=== PATIENT | male | born 1975 | race Caucasian/White ===

== ENCOUNTER 2020-12-10 19:27 | Inpatient (IN) | payer MEDICAID, SELFPAY ==
[2020-12-10 19:28] VITALS: BP 142/91; PULSE 68; RESP 20; TEMP 36; O2SAT 100; BMI 23.9
--- NOTE | 2020-12-10 19:40 | ED.DCSUM_ITS ---
- ER Visit Summary Date of Service: 12/10/20 Chief Complaint: [Requesting detox from heroin and alcohol] History of Present Illness: The patient is a 44 M [presents to the emergency department stating that he would like to get detox. Patient states that he has been getting Suboxone off the street and today he had 4 mg. Patient last used heroin 4 days ago which she snorted. Patient has used IV in the past. Patient's last alcohol drink was yesterday. Patient normally drinks beer to the point that he blacks out. Patient denies any suicidal or homicidal ideations. Patient denies recent illness. Patient has history of asthma.] Physical Examination: [HEENT-PERRLA, EOMI. Cranial nerves II through XII grossly intact. TMs clear. Mucous membranes moist. No adenopathy. Cardiovascular-regular rate and rhythm without murmur or ectopy Lungs-clear to auscultation, chest wall stable without crepitus or subcu emphysema. Evaluation of the anterior chest wall does reveal a papular lesion just lateral to the sternum on the left pectoralis muscle. Lesion is somewhat excoriated and tender to palpation. Abdomen-normoactive bowel sounds, soft, nontender, no rebound or rigidity, no peritoneal signs. Extremities-intact ?4, normal range of motion, normal pulses, atraumatic] Test Results: [CBC with differential obtained showing a 7.7, hemoglobin 13.7, hematocrit 40, placed 254. Toxicology screen and alcohol test ordered and pending. LFTs ordered and pending. Chemistries ordered and pending.] Emergency Department Course and Treatment: [Line established. Patient was given normal saline. Case was discussed with hospitalist will evaluate patient for admission.] Treatment Plan: [Admit for detox from alcohol and opiates] Disposition: [Admit] Impression: [Alcohol withdrawal Opiate withdrawal Request for detox] This note was generated with [employer] dictation software. It may contain incorrect words, spelling, and punctuation that were not noted in review of the chart prior to signing ED Disposition - Plan for ED Patient: Referrals: NOT,DEFINED [NON-STAFF] -
--- NOTE | 2020-12-10 20:12 | HP.PCM_ITS ---
Problem List (1) Opiate withdrawal Status: Acute (2) Polysubstance abuse Status: Chronic (3) Alcohol abuse Status: Resolved (4) Chest skin lesion Status: Chronic (5) Asthma Status: Chronic Qualifiers: Asthma severity: unspecified severity Asthma persistence: unspecified Asthma complication type: unspecified Qualified Code(s): J45.909 - Unspecified asthma, uncomplicated (6) Tobacco use Status: Chronic (7) Anxiety and depression Status: Chronic (8) Hepatitis C Status: Chronic Qualifiers: Viral hepatitis chronicity: unspecified Hepatic coma status: without hepatic coma Qualified Code(s): B19.20 - Unspecified viral hepatitis C without hepatic coma (9) History of intravenous drug abuse Status: Resolved History of Present Illness Date of Admission: 12/10/20 Chief Complaint: Acute Opiate Withdrawal The patient is a 44 y/o M w/ PMHx: Asthma, Tobacco use, Polysubstance abuse (Occasional rare heroin snorted, primarily abusing suboxone, no IVDA for several years, prior EtOH abuse but decreased drastically to occasionally max 2-3 beers in one setting and notes only occasionally, prior was 12 pack daily), Former IVDA, Chronic Hepatitis C untreated, Anxiety and Depression, Chronic left- midsternal chest lesion never evaluated with associated chronic pain who presents to the [facility] ED on 12/10/20 w/ noted opiate withdrawal onset starting this evening following last dose suboxone SL 4 mg at ~ 3 pm, usually uses 8 mg daily divided with abdominal pain/cramping, nausea without any recent emesis, generalized body aches and pains, rhinorrhea, restlessness as well as fatigue, mild diaphoresis and intermittent yawning. Patient interested in attaining clean status and notes that he has attempted withdrawal treatment 1 time previously but left early in the course secondary to severity of his withdrawal. 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 He had previously been on Suboxone for opiate abuse via a physician in [facility] specifically noting a [place] with recent intentions to return for ongoing treatment however he notes being very frustrated eventually presenting to [facility] ED for withdrawal treatment. Work-up in the ED included T 96.8, heart rate 68, BP 142/91, respiratory rate 20, and a percent on room air, UDS, alcohol, CBC and CMP pending upon evaluation of patient. Past Medical History Past Medical History (Chronic Problems): Chronic Problems Polysubstance abuse (Chronic) Chest skin lesion (Chronic) Asthma (Chronic) Tobacco use (Chronic) Anxiety and depression (Chronic) Hepatitis C (Chronic) Allergies No Known Allergies Allergy (Verified 12/10/20 19:30) Home Medications: Ambulatory Orders Medication Instructions Recorded Albuterol Sulfate [Albuterol 2 puff INHALATION Q4H PRN 12/10/20 Sulfate Hfa] Surgical History: no surgical history Psychiatric History: Anxiety, Depression Lives: With Family - Patient notes he is currently living with his father in a trailer. Smoking Status: Current every day smoker - Patient notes ongoing 1 pack/day cigarette tobacco usage since he was a teenager. Tobacco Use: Cigarettes Alcohol: Heavy - Patient with a history of significant alcohol abuse noting at least 12 pack of beer daily but for nearly 1 year now he notes he has significantly decreased and does not drink on a daily basis but only occasionally and will have a maximum of 3 beers in one setting. Drugs: - - History of ongoing heroin, Suboxone usage, remote history of IV drug abuse. - *Family History Maternal History Items: - - Mother with a history of schizophrenia. Patient denies having any any schizophrenic history himself. Paternal History Items: High Cholesterol, Heart Disease, Hypertension Review of Systems Constitutional: Reports: Anorexia, Malaise, Weakness, Fatigue. Denies: Chills, Fever, Weight Change HEENT: Reports: - - Rhinorrhea, congestion.. Denies: Head Aches, Sinus Congestion, Sinus Drainage Cardiovascular: Reports: Chest Pain - Chronic chest discomfort with chronic midsternal-left chest lesion, progressing, suspicious for cancer.. Denies: Palpitations Respiratory: Denies: Cough, Shortness of breath at rest, Sputum production Gastrointestinal: Reports: Abdominal Pain, Nausea. Denies: Diarrhea, Vomiting Genitourinary: Denies: Dysuria Musculoskeletal: Reports: Back Pain, Joint Pain, Muscle pain. Denies: Joint Tenderness Skin: Reports: Skin Changes - Midsternal-left chest lesion, concerning for cancer.. Denies: Rash, Wounds Neurological: Denies: Numbness, Tingling, Focal weakness Psychiatric: Reports: Anxiety, Depression. Denies: Homicidal Ideations, Suicidal Ideations Hematologic/ Lymphatic: Denies: Easy Bruising, Easy Bleeding VTE Information - Inpt Only VTE Present on Admission: No VTE Mechan Device Prophylaxis: None VTE Pharm Prophylaxis ordered?: No Reason prophylaxis not ordered:: Treatment Not Indicated Patient Problems: Active and Suspected Problems Opiate withdrawal (Acute) Subjective: Patient seated upright in the ED bed, mildly anxious, restless, talkative. Objective: Physical Examination: General: awake, alert, oriented x 3 and cooperative, seated upright in the ED bed, frequently moving, standing up, obvious restlessness, diaphoretic appearance. Skin: normal color, turgor, no icterus, cyanosis except as noted diaphoretic and significant lower midsternal-left lesion, appears more concerning for cancerous lesion, no discharge, almost a fungating mass appearance. HEENT: AT/NC, EOMI, PERRLA, dry MM, no carotid bruits or JVD noted. Lungs: Diminished breath sounds, greater bases, moderate effort, occasional expiratory wheezing, no reveals or rhonchi. Heart: Regular rate and rhythm; no gallop, rub audible, see skin. Abdomen: soft, mild generalized discomfort with palpation, ND, moderately hyperactive BS, no marked HSM. Extremities: no cyanosis, clubbing, or edema. Neurological: patient awake, alert, oriented as noted; cognitive function intact but unclear baseline; pupils equally reactive to light and accomodation; cranial nerves II-XII grossly normal, moving all 4 extremities, no focal deficits, strength moderately global decrease secondary to acute presentation, restless, mildly agitated. Psychiatric: affect appears restless, mildly agitated, no acute evidence of depressive or anxiety feelings. - Physical Exam Vitals/I&O's: Vital Signs Temp Pulse Resp BP Pulse Ox 96.8 F L 68 20 H 142/91 H 100 12/10/20 19:28 12/10/20 19:28 12/10/20 19:28 12/10/20 19:28 12/10/20 19:28 Oxygen Delivery Method Room Air Weight: 176 lb 5.917 oz Body Mass Index (BMI) 23.9 Current Medications Sodium Chloride () 1,000 mls @ 150 mls/hr IV .Q6H40M [facility] Assessment/Plan All Active Problems Opiate withdrawal (Acute) Alcohol abuse (Resolved) History of intravenous drug abuse (Resolved) The patient is a 44 y/o M w/ PMHx: Asthma, Tobacco use, Polysubstance abuse, Former EtOH Abuse, Former IVDA, Chronic Hepatitis C untreated, Anxiety and Depression, Chronic left-midsternal chest lesion never evaluated with associated chronic pain who presents to the [facility] ED on 12/10/20 w/ noted opiate withdrawal onset starting this evening following last dose suboxone SL 4 mg at ~ 3 pm. 1. Acute Opiate Withdrawal: Will admit to [facility], routine labs including CBC, CMP, urine for drug screen obtained in the ED [], will initiate and continue on protocol with tapering course of Subutex, as needed tylenol, ibuprofen, bowel regimen, gabapentin, Bentyl, Vistaril, methocarbamol, clonidine, PRN nightly trazodone for insomnia, IV fluids, IV antiemetics. Once patient clinically improved and completion of taper nearing will plan consultation with case management for transition to next level of rehabilitation care. 2. Polysubstance Abuse, IVDA Hx, History of Hepatitis C, Chronic: Patient currently not candidate for hep C treatment currently as needs to be clean, sober x 6 months, documented attendance NA or AA meetings, counseling and ongoing negative drug screens. Once appropriate GI, ID to initiate. HIV, hepatitis panel to assess for co-infection pending given he has not been tested for a long time. Encouraged PCP establishment and follow-up. 3. Former EtOH Abuse: Patient very strongly confirms that he stopped heavy alcohol intake approximately 1 year prior at which point he had been using a 12 pack of beer daily but notes that he will occasionally have 1-2 maximum 3 beers and that the last time he had any alcohol intake was maybe 3 to 4 days prior but denies ongoing alcohol abuse. Strongly encouraged with his history complete sobriety. 4. Chronic midsternal-left chest lesion, progressing: Do suspect cancer given appearance, ongoing pain per report, notes having been treated remotely with antibiotic therapy but never improved and denies having any further evaluation secondary to his ongoing substance abuse issues. May need to consider surgery evaluation for biopsy inpatient versus close early follow-up with dermatology outpatient. May also need to consider imaging. 5. Chronic asthma: Strongly encouraged tobacco cessation, will encourage head of bed, I-S, as needed albuterol. 6. Tobacco Abuse: Encouraged cessation, inpatient consultation per RT, NR if desired. 7. Anxiety and depression: Patient is not on any medications, likely contributes, encourage close follow-up with 180 with counseling. 8. DVT prophylaxis: Low risk, encourage ambulation. Inpatient E&M: 40518 Init Hosp L3
--- NOTE | 2020-12-10 20:13 | CM.ED ---
SOCIAL WORK Reason for Consult: Detox Met with patient in room. Introduced role and reason for referral. Patient states spoke with [facility] today. Patient reports wishes to detox from opiates. Patient states has been using Suboxone for the last 4 days in preparation for this. Patient states last use of heroin was 4-5 days ago. Patient stating, I just want help. Discussed [facility] and informed [facility] social work specialist will be in to complete assessment. Patient verbalized understanding. Plan: Admit to [facility] Treatment NavigatorTorsten updated on patient's admission. Jonatan Salgado, GEOTHERMAL OPERATIONS MANAGER, CHIEF FUNDRAISING OFFICER
[2020-12-10] MEDS: 0.9% Normal Saline 1,000 ML 150 ML IV (20:18)
[2020-12-10 20:30] LABS: Absolute Lymphocyte Count 3.93 X10^3/uL (0.83-4.51); Basophil# 0.05 X10^3/uL; Basophil% 0.6 % (0-1); Eosinophil# 0.22 X10^3/uL; Eosinophils% 2.8 % (0-5); Hematocrit 40.2 % (40-54); Hemoglobin 13.7 g/dL (13.0-16.5); Lymphocyte # 3.93 X10^3/ul (4.0); Lymphocyte % 50.8 % (19-41); Mean Corp Hgb Conc 34.1 g/dL (32-36); Mean Corpuscular Hgb 31.6 pg (27.0-32.0); Mean Corpuscular Volume 92.8 fL (80-94); Mean Platelet Vol. 9.1 fl (6.2-12.0); Monocyte% 6.5 % (0-10); NRBC Flagged by Analyzer 0 % (0-5); Neutrophil # 3.03 X10^3/uL (2.7-7.7); Neutrophil % 39.2 % (47-70); Platelet Count 254 K/mm3 (150-450); RBC Distribution Width CV 12.7 % (11.6-14.6); RBC Distribution Width SD 43.6 fl (35.1-43.9); Red Blood Count 4.33 M/mm3 (4.6-6.2); White Blood Count 7.7 K/mm3 (4.4-11.0)
[2020-12-10 20:46] LABS: ALB/GLOB Ratio 1.1 RATIO (0.9-2.4); AST(SGOT) 11 U/L (15-37); Alanine Aminotransfer ALT/SGPT 16 U/L (16-61); Albumin, Serum 3.8 g/dL (3.2-5.0); Alkaline Phosphatase 59 U/L (45-117); Anion Gap 4 (5-15); BUN 8 mg/dL (7-18); BUN/Creat Ratio 10.3 RATIO (10-20); Calcium,Total 8.7 mg/dL (8.5-10.1); Chloride 108 mmol/L (98-107); Creatinine, Serum 0.78 mg/dL (0.70-1.30); EST Glomerular Filtration Rate 116 mL/min (>60); Est Glom Filt Rate - Afr Amer 140 mL/min (>60); Estimated Creatinine Clearance 135.41 ml/min; Globulin 3.4 g/dL (2.2-4.2); Glucose 82 mg/dL (74-106); Potassium 3.4 mmol/L (3.5-5.1); Protein, Total 7.2 g/dL (6.4-8.2); Sodium Level 142 mmol/L (136-145)
[2020-12-10 20:49] LABS: Alcohol, Blood (Medical)-Serum < 3.0 mg/dL
[2020-12-10 21:08] VITALS: BP 144/89; PULSE 60; RESP 14; TEMP 36.8; O2SAT 100
[2020-12-10 21:29] LABS: Amphetamine Urine VISTA NEGATIVE (<1000 ng/mL); Barbiturate Urine VISTA POSITIVE (< 200 ng/mL); Benzodiazepine Urine VISTA NEGATIVE (< 200 ng/mL); Cocaine Urine VISTA NEGATIVE (< 300 ng/mL); Ecstacy Urine VISTA NEGATIVE (< 500 ng/mL); Methadone Urine VISTA NEGATIVE (< 300 ng/mL); PCP Urine VISTA NEGATIVE (< 25 ng/mL); THC Urine VISTA NEGATIVE (< 50 ng/mL); Vista UDS pH Range 6
[2020-12-10 21:36] VITALS: BMI 23.2
[2020-12-10 21:40] VITALS: BMI 23.2
[2020-12-10 21:56] LABS: Magnesium 2.3 mg/dL (1.6-2.6); Phosphorus 2.8 mg/dL (2.5-4.9)
[2020-12-10 22:00] VITALS: BP 119/64; PULSE 64; RESP 16; TEMP 36.8; O2SAT 100
[2020-12-10] MEDS: Lactated Ringers 1,000 ML 125 ML IV (22:15)
[2020-12-10 22:24] LABS: HIV - WCH Non-Reactive (Nonreactive)
[2020-12-10] MEDS: Dicyclomine 10 MG Capsule 20 MG PO (22:32)
--- NOTE | 2020-12-10 22:52 | PCS.PANDOC ---
PANDEMIC DOCUMENTATION INITIATED: Date: 12/10/20 Time: 2134
[2020-12-11 04:45] VITALS: BP 118/67; PULSE 67; RESP 16; TEMP 36.6; O2SAT 98
--- NOTE | 2020-12-11 07:54 | PN_ITS ---
Patient Problems: Active and Suspected Problems Opiate withdrawal (Acute) Subjective: Patient seen and examined. He has been managed for acute alcohol withdrawal and acute opiate withdrawal. He has no complaints this morning. He has remained hemodynamically stable. Review of systems otherwise negative. Vitals/I&O's: Vital Signs Temp Pulse Resp BP Pulse Ox 97.8 F 67 16 118/67 98 12/11/20 04:45 12/11/20 04:45 12/11/20 04:45 12/11/20 04:45 12/11/20 04:45 Oxygen Delivery Method Room Air Weight: 171 lb 4.787 oz Body Mass Index (BMI) 23.2 Intake and Output for Last 24 Hours 12/09/20 12/10/20 12/11/20 23:59 23:59 23:59 Intake Total 390 / 390 1300 / 1300 Balance 390 / 390 1300 / 1300 General: Alert, Oriented x3, Cooperative HEENT: Atraumatic, PERRLA, EOMI, Normocephalic Neck: Supple, No JVD, Negative Carotid Bruits Lungs: Clear to auscultation, Normal air movement Cardiovascular: Regular rate, No murmurs Abdomen: Bowel Sounds Present, Soft, Non Tender Extremities: No edema, Capillary Refill Less than 3 Seconds Skin: No rashes, No breakdown, - - lesion on mid sternum, with a fungating appearance, is chronic Musculoskeletal: No Tenderness to Palpation of Joints or Extremities Neurological: Cranial nerves II-XII grossly intact Psych/Mental Status: Normal Affect, Appropriate, Alert and oriented to time, place, person, mood and affect Laboratory Results 12/10/20 20:04: Phosphorus 2.8, Magnesium 2.3 12/10/20 20:05: WBC 7.7, RBC 4.33 L, Hgb 13.7, Hct 40.2, MCV 92.8, MCH 31.6, MCHC 34.1, RDW Std Deviation 43.6, RDW Coeff of [place] 12.7, Plt Count 254, MPV 9.1, Immature Gran % (Auto) 0.100, Neut % (Auto) 39.2 L, Lymph % (Auto) 50.8 H, [place] % (Auto) 6.5, Eos % (Auto) 2.8, Baso % (Auto) 0.6, Absolute Neuts (auto) 3.0, Absolute Lymphs (auto) 3.93, Nucleated RBC % 0 12/10/20 20:05: Sodium 142, Potassium 3.4 L, Chloride 108 H, Carbon Dioxide 30.0, Anion Gap 4 L, BUN 8, Creatinine 0.78, Estim Creat Clear Calc 135.41, Est GFR (MDRD) Af Amer 140, Est GFR (MDRD) Non-Af 116, BUN/Creatinine Ratio 10.3, Glucose 82, Calcium 8.7, Total Bilirubin 0.20, AST 11 L, ALT 16, Alkaline Phosphatase 59, Total Protein 7.2, Albumin 3.8, Globulin 3.4, Albumin/Globulin Ratio 1.1 12/10/20 20:05: Ethyl Alcohol < 3.0 12/10/20 20:05: Hepatitis A IgM Ab Pending, Hepatitis A Ab Total Pending, Hep Bs Antigen Pending, Hep B Core Total Ab Pending, Hep B Core IgM Ab Pending 12/10/20 20:05: HIV 1&2 Antibody Non-Reactive 12/10/20 21:05: Urine Opiates Screen NEGATIVE, Urine Methadone Screen NEGATIVE, Ur Barbiturates Screen POSITIVE H, Ur Phencyclidine Scrn NEGATIVE, Ur Amphetamines Screen NEGATIVE, U Methamphetamin-MDMA NEGATIVE, U Benzodiazepines Scrn NEGATIVE, Urine Cocaine Screen NEGATIVE, U Cannabinoids Screen NEGATIVE, Ur Drug Screen Comment Current Medications Acetaminophen (Acetaminophen 500 Mg Tablet) 500 mg PO Q4H PRN PRN PRN Reason: Temp > 100.4 F Al Hydroxide/Mg Hydroxide (Mag Hydrox/Al Hydrox/Simeth 30 Ml Udc) 30 ml PO Q6H PRN PRN PRN Reason: dyspesia Albuterol Sulfate (Albuterol 2.5 Mg/3 Ml Vial.Neb.) 2.5 mg INHALATION Q2H PRN PRN PRN Reason: Dyspnea, wheezing Bisacodyl (Bisacodyl 10 Mg Suppository) 10 mg RECTAL DAILY PRN PRN Reason: Constipation Buprenorphine HCl (Buprenorphine Hcl 2 Mg Tab.Subl) 0 mg SL Q8H YOLANDA; Taper Stop: 12/13/20 21:26 Clonidine (Clonidine Hcl 0.1 Mg Tablet) 0.1 mg PO Q8H PRN PRN PRN Reason: RESTLESSNESS Dicyclomine HCl (Dicyclomine 10 Mg Capsule) 20 mg PO Q6H PRN PRN PRN Reason: Abdominal Discomfort Last Admin: 12/10/20 22:32 Dose: 20 mg Documented by: Gabapentin (Gabapentin 300 Mg Capsule) 300 mg PO Q8H PRN PRN PRN Reason: moderate to severe anxiety Hydralazine HCl (Hydralazine 20 Mg/Ml Vial) 10 mg IV Q4H PRN PRN PRN Reason: SBP > 160 Hydroxyzine Pamoate (Hydroxyzine Yanci 25 Mg Capsule) 50 mg PO Q6H PRN PRN PRN Reason: mild anxiety Ibuprofen (Ibuprofen 600 Mg Tablet) 600 mg PO Q8H PRN PRN PRN Reason: Pain Score 1-10 Loperamide HCl (Loperamide 2 Mg Capsule) 2 mg PO Q4H PRN PRN PRN Reason: LOOSE STOOLS Methocarbamol (Methocarbamol 750 Mg Tablet) 1,500 mg PO Q6H PRN PRN PRN Reason: MUSCLE SPASM Nicotine (Nicotine 21 Mg Patch) 21 mg TD DAILY YOLANDA Last Admin: 12/10/20 22:16 Dose: Not Given Documented by: Ondansetron HCl (Ondansetron 8 Mg Tablet) 8 mg PO Q8H PRN PRN PRN Reason: NAUSEA Senna (Senna Tablet) 2 tablet PO QHS PRN PRN Reason: Constipation Sodium Chloride (0.9% Saline Lock 10 Ml Syringe) 10 - 40 ml IV UD PRN PRN Reason: SALINE FLUSH Trazodone HCl (Trazodone 100 Mg Tablet) 100 mg PO QHS PRN PRN PRN Reason: INSOMNIA STROKE Vital Signs/Narrative: Vital Signs Temp Pulse Resp BP Pulse Ox 12/11/20 04:45 97.8 F 67 16 118/67 98 Medical Necessity - Tobacco Use Smoking Status: Current every day smoker Tobacco Use: Cigarettes Assessment/Plan All Active Problems Opiate withdrawal (Acute) Alcohol abuse (Resolved) History of intravenous drug abuse (Resolved) #Acute opioid withdrawal * on opiate withdrawal protocol with buprenorphine * monitor CINA score * # Hepatitis C: chronic. counseled he would need to be clean for ~! 6 months in order to qualify for treatment #Chornbic asthma: stable. on breathing treatments with bronchodilators #Anxiety and depression; to follow up on outpatient basis with PCP and [facility] #Chronic mid sternal lesion: Will get chest CT with contrast to delineate the lesion. based on CT findings, will get plastic surgery consult. DVT prophylaxis: low risk, encourage ambulation. PATIENT SIGNED OUT AGAINST MEDICAL ADVICE on 12/11/2020 Inpatient E&M: 23598 Subs Hosp L2
--- NOTE | 2020-12-11 10:39 | ADDICTION ---
This typewriter aligner met with PT in his room to administer ASAM, DUDIT and MSE assessments and to start d/c planning. PT cooperative throughout assessments. PT requesting direct admit into [facility]. This typewriter aligner will send referral to [facility] for this PT. Assessments to be completed during next visit 12/12.
[2020-12-11 10:45] VITALS: BP 123/76; PULSE 55; RESP 16; TEMP 36.6; O2SAT 97
--- NOTE | 2020-12-11 13:12 | NURSING ---
Patient states that he wishes to sign out AMA. Discussed options with patient in regards to trying the CT with no contrast d/t not being able to obtain IV access. He decline and continues to wish to sign out AMA. Papers signed and copy given to patient.
--- NOTE | 2020-12-11 15:28 | DS.PCM_ITS ---
Discharge Date and Diagnosis - Problem List Patient Problems: Active and Suspected Problems Opiate withdrawal (Acute) Date of Admission: 12/10/20 Date of Discharge: 12/11/20 - Primary Discharge Diagnosis Acute Problems: Active Problems Opiate withdrawal (Acute) - Secondary Discharge Diagnosis Chronic Problems: Chronic Problems Polysubstance abuse (Chronic) Chest skin lesion (Chronic) Asthma (Chronic) Tobacco use (Chronic) Anxiety and depression (Chronic) Hepatitis C (Chronic) Hospital Course and Treatment Operations: None Procedures: None Summary of Care Provided: The patient is a 44 year old M with an extensive past medical history as outlined who was admitted through the ED on 12/10/2020 for acute opioid withdrawal. Symptoms have started on the evening of admission. Patient had been on Suboxone chronically for acute opiate withdrawal and states he was trying to wean himself off. He usually uses 8 mg daily divided in separate doses and not use 4 mg a few hours prior to admission. He complained of abdominal cramping and pain, nausea but no vomiting, generalized body aches and pains as well as rhinorrhea and restlessness and fatigue. She was admitted and managed for acute opiate withdrawal. He said he had previously been on Suboxone for opiate abuse through a physician in [facility] and had been planning on going back there for continuation of his treatment but he had become very frustrated with his withdrawal symptoms so he came to the ED. He was admitted and managed for acute opiate withdrawal. He was started on buprenorphine withdrawal protocol. Patient also stated that he had a lesion on his chest which has been there for several months and was tender. He also had erythema around that lesion. He had never had it biopsied. Patient was started on IV vancomycin and plan was to get a CT of the chest to delineate to the lesion further. However IV line could not be accessed for the IV contrast with a CT scan. Plan was therefore to do the CT without contrast. Patient however got frustrated and signed out AGAINST MEDICAL ADVICE Patient was seen and examined prior to discharge. Please refer to progress notes dated 12/11/2020 for physical examination findings. [] Patient Problems: Active and Suspected Problems Opiate withdrawal (Acute) - Physical Exam Vitals/I&O's: Vital Signs Temp Pulse Resp BP Pulse Ox 97.8 F 55 L 16 123/76 H 97 12/11/20 10:45 12/11/20 10:45 12/11/20 10:45 12/11/20 10:45 12/11/20 10:45 Oxygen Delivery Method Room Air Weight: 171 lb 4.787 oz Body Mass Index (BMI) 23.2 Intake and Output for Last 24 Hours 12/09/20 12/10/20 12/11/20 23:59 23:59 23:59 Intake Total 390 / 390 1300 / 1300 Balance 390 / 390 1300 / 1300 Laboratory Results 12/10/20 20:04: Phosphorus 2.8, Magnesium 2.3 12/10/20 20:05: WBC 7.7, RBC 4.33 L, Hgb 13.7, Hct 40.2, MCV 92.8, MCH 31.6, MCHC 34.1, RDW Std Deviation 43.6, RDW Coeff of [place] 12.7, Plt Count 254, MPV 9.1, Immature Gran % (Auto) 0.100, Neut % (Auto) 39.2 L, Lymph % (Auto) 50.8 H, [place] % (Auto) 6.5, Eos % (Auto) 2.8, Baso % (Auto) 0.6, Absolute Neuts (auto) 3. 0, Absolute Lymphs (auto) 3.93, Nucleated RBC % 0 12/10/20 20:05: Sodium 142, Potassium 3.4 L, Chloride 108 H, Carbon Dioxide 30.0, Anion Gap 4 L, BUN 8, Creatinine 0.78, Estim Creat Clear Calc 135.41, Est GFR (MDRD) Af Amer 140, Est GFR (MDRD) Non-Af 116, BUN/Creatinine Ratio 10.3, Glucose 82, Calcium 8.7, Total Bilirubin 0.20, AST 11 L, ALT 16, Alkaline Phosphatase 59, Total Protein 7.2, Albumin 3.8, Globulin 3.4, Albumin/Globulin Ratio 1.1 12/10/20 20:05: Ethyl Alcohol < 3.0 12/10/20 20:05: Hepatitis A IgM Ab Pending, Hepatitis A Ab Total Pending, Hep Bs Antigen Pending, Hep B Core Total Ab Pending, Hep B Core IgM Ab Pending 12/10/20 20:05: HIV 1&2 Antibody Non-Reactive 12/10/20 21:05: Urine Opiates Screen NEGATIVE, Urine Methadone Screen NEGATIVE, Ur Barbiturates Screen POSITIVE H, Ur Phencyclidine Scrn NEGATIVE, Ur Amphetamines Screen NEGATIVE, U Methamphetamin-MDMA NEGATIVE, U Benzodiazepines Scrn NEGATIVE, Urine Cocaine Screen NEGATIVE, U Cannabinoids Screen NEGATIVE, Ur Drug Screen Comment Discharge Diet: No Restrictions Home Medications: Medications to take at Discharge Albuterol Sulfate [Albuterol Sulfate Hfa] 2 puff INHALATION Q4H PRN 12/10/20 Primary Care Physician: NOT,DEFINED [NON-STAFF] - Disposition: Against Medical Advice Minutes spent on discharge:: 35 Patient Condition:: Fair Medical Necessity - Tobacco Use Smoking Status: Current every day smoker Tobacco Use: Cigarettes Meaningful Use Info Meaningful Use Diagnoses (Choose all that apply): None applicable Inpatient E&M: 16112 Disch Hosp
[2020-12-12 05:07] LABS: HEPATITIS B SURFACE AG Negative (Negative); Hepatitis A AB, Total Positive (Negative); Hepatitis A IgM Antibody Negative (Negative); Hepatitis B Core AB IgM Negative (Negative); Hepatitis B Core Ab Total Positive (Negative); Hepatitis C Ab >11.0 s/co ratio (0.0-0.9)
[2020-12-12 14:25] LABS: Hep B Surface Antibodies Reactive (.)
== END 2020-12-11 13:11 | disposition left against medical advice (07) | DRG 770 ==
LOC: ED 20:09 → MS3 20:59
PROVIDERS: Admitting Provider Family Medicine; Emergency Provider Emergency Medicine; Visit Provider Student in an Organized Health Care Education/Training Program
DX: F11.23 Opioid dependence with withdrawal (principal); F10.239 Alcohol dependence with withdrawal, unspecified; J45.909 Unspecified asthma, uncomplicated; Z79.51 Long term (current) use of inhaled steroids; F17.210 Nicotine dependence, cigarettes, uncomplicated; B18.2 Chronic viral hepatitis C; L98.9 Disorder of the skin and subcutaneous tissue, unspecified; F32.9 Major depressive disorder, single episode, unspecified; F41.9 Anxiety disorder, unspecified
CPT/HCPCS: 36415; 80053; 80307; 82077; 83735; 84100; 85025; 86703; 86704; 86705; 86706; 86708; 86709; 86803; 87040; 87340; 99285; 99406; J7030; J7120; A4216

== ENCOUNTER 2021-02-02 19:45 | Emergency (ER) | payer MEDICAID, SELFPAY ==
[2021-02-02 19:45] VITALS: BP 133/93; PULSE 75; RESP 18; TEMP 36.9; O2SAT 99; BMI 23.7
--- NOTE | 2021-02-02 20:07 | EKG12_ITS ---
Test Reason : CP Blood Pressure : / mmHG Vent. Rate : 069 BPM Atrial Rate : 069 BPM P-R Int : 122 ms QRS Dur : 094 ms QT Int : 366 ms P-R-T Axes : 055 067 032 degrees QTc Int : 392 ms Normal sinus rhythm Normal ECG Confirmed by SUBHASH CAISLLAS, DAVID ([id number]), associate editor RAY BEDOYA ([id number]) on 02/04/2021 9:03:44 AM Referred By: TAMRA Confirmed By:DAVID CULLEN MD
[2021-02-02 20:30] VITALS: RESP 18
[2021-02-02 20:30] LABS: Absolute Lymphocyte Count 3.95 X10^3/uL (0.83-4.51); Absolute Neutrophil Count 3.7 X10^3/uL (2.0-7.7); Basophil# 0.05 X10^3/uL; Basophil% 0.6 % (0-1); Eosinophil# 0.31 X10^3/uL; Eosinophils% 3.6 % (0-5); Hematocrit 45.4 % (40-54); Hemoglobin 15.6 g/dL (13.0-16.5); Lymphocyte # 3.95 X10^3/ul (4.0); Lymphocyte % 46.2 % (19-41); Mean Corp Hgb Conc 34.4 g/dL (32-36); Mean Corpuscular Hgb 31.6 pg (27.0-32.0); Mean Corpuscular Volume 91.9 fL (80-94); Mean Platelet Vol. 9.5 fl (6.2-12.0); Monocyte# 0.49 X10^3/uL; Monocyte% 5.7 % (0-10); NRBC Flagged by Analyzer 0 % (0-5); Neutrophil # 3.74 X10^3/uL (2.7-7.7); Neutrophil % 43.8 % (47-70); Platelet Count 254 K/mm3 (150-450); RBC Distribution Width CV 11.9 % (11.6-14.6); RBC Distribution Width SD 40.2 fl (35.1-43.9); Red Blood Count 4.94 M/mm3 (4.6-6.2); White Blood Count 8.6 K/mm3 (4.4-11.0)
--- NOTE | 2021-02-02 20:30 | RAD_ITS ---
HISTORY: chest pain ADDITIONAL HISTORY: None provided. EXAMINATION/TECHNIQUE: XR Chest 1 View AP/PA Number of images including paperwork: 1 COMPARISON: None FINDINGS: LUNGS AND PLEURA: No consolidation, mass or pleural effusion. CARDIAC SILHOUETTE: Unremarkable. MEDIASTINUM AND GINETTE: Unremarkable. UPPER ABDOMEN: Unremarkable. SKELETON AND SOFT TISSUES: No acute skeletal findings. OTHER DEVICES AND HARDWARE: None. RAD/Chest 1 View (Portable) IMPRESSION: No acute cardiopulmonary abnormality. at 2114 Reported and signed by: Karly Rodriguez MD Electronically Signed: Karly Rodriguez MD at 21:14 EDT Tel , Service support ,
[2021-02-02 20:54] LABS: Anion Gap 6 (5-15); BUN 8 mg/dL (7-18); BUN/Creat Ratio 7.9 RATIO (10-20); Chloride 107 mmol/L (98-107); Creatinine, Serum 1.01 mg/dL (0.70-1.30); EST Glomerular Filtration Rate 86 mL/min (>60); Est Glom Filt Rate - Afr Amer 104 mL/min (>60); Estimated Creatinine Clearance 103.51 ml/min; Glucose 109 mg/dL (74-106); Potassium 3.6 mmol/L (3.5-5.1); Sodium Level 140 mmol/L (136-145)
--- NOTE | 2021-02-02 21:42 | ED.DEP ---
ED Disposition - Plan for ED Patient: Instructions: ED Strain Chest Wall Prescriptions: Doxycycline 100 mg PO BID #20 capsule Prescription Printed Referrals: Care Physician,No Primary [Primary Care Provider] - Kelli Pinto MD [NON-STAFF] -
[2021-02-02] MEDS: Doxycycline 100 MG CAPSULE PO (21:46)
--- NOTE | 2021-02-02 22:05 | ED.VISSUMM ---
- ER Visit Summary Date of Service: 02/02/21 Chief Complaint: Chest wall pain History of Present Illness: The patient is a 45 M presenting with chest wall pain. This has been ongoing for the past several months but has been worsened over the past week. He has had constant pain for the past week. He states he has a sore which has been on his chest for the past 8 months. It has intermittently been treated with antibiotics. He states he also was lifting an air conditioner and this worsened his chest wall pain. He denies shortness of breath. Denies fever. Denies other complaints. Physical Examination: Vitals are stable. Patient is afebrile. Alert no acute distress. HEENT exam is unremarkable. Neck is supple. Lungs are clear and equal bilaterally. Left chest wall tenderness with no crepitus. Chest wall skin lesion 2 cm x 1 cm with mild surrounding erythema. No fluctuance Heart is regular rate and rhythm. Abdomen is soft nontender nondistended. Extremities are unremarkable. Skin is warm and dry. Remainder of exam is unremarkable. Emergency Department Course and Treatment: EKG is normal sinus rhythm rate of 69 with no acute ischemic changes. Chest x-ray read by myself and radiology shows no acute cardiopulmonary abnormality. CBC, chemistries unremarkable. Troponin is negative. Patient declined pain medication in the emergency department. He has a remote history of heroin abuse. He declined NSAIDs as well. He is requesting antibiotics. He is given doxycycline and prescription for doxycycline. He is given dermatology for follow-up. He has a scheduled appointment with his PCP this week. Advised return to ED for worsening complaints. Disposition: Discharge home Impression: Chest wall strain, skin lesion chest wall This note was generated with [employer] dictation software. It may contain incorrect words, spelling, and punctuation that were not noted in review of the chart prior to signing ED Disposition - Plan for ED Patient: Disposition: Home or Assisted Living Instructions: ED Strain Chest Wall Prescriptions: Doxycycline 100 mg PO BID #20 capsule Prescription Printed Referrals: Kelli Pinto MD [NON-STAFF] - Care Physician,No Primary [Primary Care Provider] -
== END 2021-02-02 21:55 | disposition home or self-care (01) ==
PROVIDERS: Emergency Provider Emergency Medicine
DX: S29.011A Strain of muscle and tendon of front wall of thorax, initial encounter (principal); L98.9 Disorder of the skin and subcutaneous tissue, unspecified; J45.909 Unspecified asthma, uncomplicated; Z72.0 Tobacco use; Z79.51 Long term (current) use of inhaled steroids; X50.0XXA Overexertion from strenuous movement or load, initial encounter; Y93.89 Activity, other specified; Y92.89 Other specified places as the place of occurrence of the external cause; Y99.8 Other external cause status
CPT/HCPCS: 71045; 80048; 84484; 85025; 93005; 99283; A4216

== ENCOUNTER → 2021-02-20 | Outpatient (CLI) | payer MEDICAID, SELFPAY ==
[2021-02-02 19:45] VITALS: BMI 23.7
== END | disposition home or self-care (01) ==
LOC: LABSPEC 13:14
PROVIDERS: Visit Provider Physician Assistant
DX: L08.9 Local infection of the skin and subcutaneous tissue, unspecified (principal)
CPT/HCPCS: 87070; 87205

== ENCOUNTER 2021-12-30 15:28 | Emergency (ER) | payer MEDICAID, SELFPAY ==
[2021-12-30 15:29] VITALS: BP 140/81; PULSE 73; RESP 16; TEMP 36.1; O2SAT 99; BMI 27.3
--- NOTE | 2021-12-30 16:15 | VDLE_ITS ---
Reason For Study: swelling RIGHT LEFT GSV is normal. GSV is normal. CFV is compressible, spontaneous, phasic, CFV is compressible, spontaneous, phasic, competent and demonstrates normal competent, and demonstrates normal augmentation. augmentation. FV is compressible, spontaneous, phasic, FV is compressible, spontaneous, phasic, competent and demonstrates normal competent and demonstrates normal augmentation. augmentation. POP V is compressible, spontaneous, phasic, POP V is compressible, spontaneous, phasic, competent and demonstrates normal competent and demonstrates normal augmentation. augmentation. T/P Trunk is compressible. T/P Trunk is compressible. PTV is compressible. PTV is compressible. RT PerV is compressible. LT PerV is compressible. Procedure This is a venous duplex using B-mode, color flow and spectral Doppler. Exam performed portable in ED. The exam was diagnostic. A preliminary report was called and/or faxed to Dr. Pink. VL/Venous Duplex US - Gio Extrem Interpretation Summary No evidence for acute deep venous thrombosis bilateral lower extremities with p atent and compressible bilateral great saphenous veins. Ordering Physician: Augusto Pink Performed By: Bebo Cote RVT
--- NOTE | 2021-12-30 16:32 | EDS_ITS ---
HPI History of Present Illness Chief Complaint: Lower Extremity Injury Informant: patient Narrative Narrative: Patient sent in here by PCP after being evaluated today in the office to rule out DVT. Bilateral lower leg ankle swelling for 4 days. States it was purple now improving. Swelling is improving. No chest pains or shortness of breath. No recent travel surgeries or immobilizations. This past summer reported had a sternal infection secondary history of IV drug use. History of hepatitis C. [id number] smoker. Further discussion he has been having pain when he ambulates improves with rest. He brought in the paperwork from his PCP stating go to the ED to rule out DVTs. Prior similar symptoms: No PFSH PFSH Medical History (Updated 12/30/21 @ 16:53 by Rosalinda Mckeon) Asthma Home Medications albuterol sulfate 2 puff INHALATION Q4H PRN 12/10/20 [History Last Taken Unknown] doxycycline monohydrate 100 mg PO BID #20 capsule 02/02/21 [Rx Last Taken Unknown] Allergy/AdvReac Type Severity Reaction Status Date / Time No Known Allergies Allergy Verified 12/30/21 15:29 Social History Smoking Status: Current every day smoker tobacco type: cigarettes ROS ROS ED Constitutional Constitutional ED: Denies chills, fever(s) or sweats Eyes Eyes: Denies change in vision ENT ENT ED: Denies dysphagia or sore throat Cardiovascular Cardiovascular: Denies chest pain, leg edema, palpitations or racing heartbeat Respiratory/Chest Respiratory/Chest: Denies cough, dyspnea or dyspnea on exertion Gastrointestinal Gastrointestinal: Denies abdominal pain, diarrhea, nausea or vomiting Genitourinary Genitourinary ED: Denies dysuria, hematuria or urinary frequency Musculoskeletal Musculoskeletal: Reports other Details: Bilateral lower extremity swelling ; Denies back pain, extremity pain or neck pain Integumentary Denies rash or wounds Neurologic Neurologic: Denies headache(s), paresthesias or weakness EXAM Physical Exam Const Vital Signs: 12/30/21 15:29 Temperature 96.9 F L Temperature Source Temporal Pulse Rate 73 Respiratory Rate 16 Blood Pressure 140/81 H Blood Pressure Mean 100 Pulse Ox 99 Oxygen Delivery Method Room Air Positive well nourished and well developed General Appearance ED: well developed and NAD HEENT Reports moist mucous membranes normocephalic and atraumatic Eyes PERRL, EOMs intact bilaterally and conjunctivae normal General Eye ED: Yes normal appearance of both eyes Neck no lymphadenopathy and supple General: Negative for tenderness Chest Wall Chest: Negative for tenderness Resp normal respiratory effort and normal air movement Effort and Inspection: symmetric chest movement; Negative for respiratory distress Cardio regular rate, regular rhythm and no murmurs Peripheral Pulses: pulses 2+ throughout GI normal to inspection, nondistended, normoactive bowel sounds and non-tender Palpation: Negative for guarding or rebound tenderness present Back/Spine no CVA tenderness and no thoracic nor lumbar tenderness Extremity normal to inspection Extremity Narrative: 1+ lower extremity swelling ankle and feet, strong PT pulses bilaterally symmetric both lower extremities along with symmetric with radial pulses. Normal color, warm to palpation. General Extremety ED: Yes edema; Negative for tenderness General Extremity: edema Neuro oriented x3 and no sensory deficits noted Sensorium / Orientation: awake and alert Skin no rashes or lesions noted and no wounds MDM MDM MDM Narrative Medical decision making narrative: Patient bilateral lower extremity pain and swelling. He has distal pulses on exam easily palpated. From his history I am more concerned for intermittent claudication stating worse with ambulation improved with rest. He has tobacco history. I did obtain DVT studies of both legs which were negative. His PCP sent him in for possible infection however erythema blanches bilaterally, therefore less likely concerns for cellulitis. Due to time of day is unable to obtain PVRs for further evaluation. I am unable to order as an outpatient. I did discuss with his PCP Dr. Sanchez discussed the concerns. This will be ordered as an outpatient by his PCP. He is given follow-up with Dr. Joshi vascular surgery as an outpatient. I discussed tobacco cessation with the patient. Patient is being discharged under pandemic conditions under declared global, national and state disaster activation, with limited medical resources. Patient and community understands this. Results discussed in layman's terms to the merlin ent satisfaction. All questions answered in layman's terms. Patient understands importance of follow-up care as directed. Patient has been instructed to return to the ED immediately if new symptoms, problems, or questions occur. We mutually agree with the plan of disposition. The patient understand that they may call or return with any questions or concerns at any time. Radiography Diagnostic Testing: Clinical Impression(s) from Imaging Studies Venous Doppler Study 12/30/21 16:15 Interpretation Summary No evidence for acute deep venous thrombosis bilateral lower extremities with patent and compressible bilateral great saphenous veins. Ordering Physician: Augusto Pink Performed By: Bebo Cote RVT Discharge Plan Triage Chief Complaint: Lower Extremity Injury ED Provider: Augusto Pink Dx/Rx/DC Orders Clinical Impression: Claudication, intermittent, Peripheral edema Instructions: ED Peripheral Edema, Bilateral, ED Peripheral Artery Disease (PAD) Prescriptions: No Action albuterol sulfate 8.5 GM HFA aerosol inhaler 2 puff INHALATION Q4H PRN (Reason: Asthma) RF: 0 doxycycline monohydrate 100 MG capsule 100 mg PO BID Qty: 20 RF: 0 Primary Care Provider: Josiah Sanchez Referrals: Osvaldo Joshi MD [STAFF PHYSICIAN] - 3-5 Days Josiah Sanchez MD [Primary Care Provider] - 1 Day Activity Restrictions/Additional Instructions: Ultrasound of your lower extremities negative for DVTs. I discussed with your doctor to order peripheral vascular resistance studies as an outpatient and follow-up with vascular Dr. Joshi for evaluation and testing as an outpatient. Your history is concerning for intermittent claudication. You need to stop smoking. Disposition Disposition: Home, Self Care Discharge Date/Time: 12/30/21 17:13
== END 2021-12-30 17:13 | disposition home or self-care (01) ==
PROVIDERS: Emergency Provider Emergency Medicine; PCP Internal Medicine; Visit Provider Emergency Medicine
DX: I73.9 Peripheral vascular disease, unspecified (principal); F17.210 Nicotine dependence, cigarettes, uncomplicated; M79.604 Pain in right leg; M79.605 Pain in left leg; R60.0 Localized edema; J45.909 Unspecified asthma, uncomplicated; Z86.19 Personal history of other infectious and parasitic diseases
CPT/HCPCS: 93970; 99282

== ENCOUNTER 2022-04-20 12:08 | Emergency (ER) | payer MEDICAID, SELFPAY ==
[2022-04-20 12:09] VITALS: BP 133/90; PULSE 71; RESP 18; TEMP 36.4; O2SAT 97; BMI 23.0
--- NOTE | 2022-04-20 12:22 | CM.ED ---
RANGEL Note RANGEL was contacted by Ioana at [facility]. Ioana said that patient is being brought to the ED. Ioana said that [facility]. Ioana said that the outpatient provider is writing up the assessment currently and then it will be faxed to this proposal lead writer. Plan is for inpatient psych hospitalization. RANGEL updated Triage Early Childhood Worker, patient registration supervisor Valerie, and MD. Plan: Inpatient psych hospitalization. [facility] completed the assessment. Mila ANDRE
[2022-04-20 13:11] LABS: Absolute Neutrophil Count 5.6 X10^3/uL (2.0-7.7); Basophil# 0.04 X10^3/uL; Basophil% 0.4 % (0-1); Eosinophil# 0.09 X10^3/uL; Hematocrit 41.3 % (40-54); Hemoglobin 14.6 g/dL (13.0-16.5); Lymphocyte % 31.1 % (19-41); Mean Corp Hgb Conc 35.4 g/dL (32-36); Mean Corpuscular Hgb 31.3 pg (27.0-32.0); Mean Corpuscular Volume 88.4 fL (80-94); Mean Platelet Vol. 9.4 fl (6.2-12.0); Monocyte# 0.47 X10^3/uL; Monocyte% 5.2 % (0-10); NRBC Flagged by Analyzer 0 % (0-5); Neutrophil # 5.58 X10^3/uL (2.7-7.7); Platelet Count 270 K/mm3 (150-450); RBC Distribution Width CV 12.4 % (11.6-14.6); Red Blood Count 4.67 M/mm3 (4.6-6.2)
--- NOTE | 2022-04-20 13:13 | EX.ED.VIS.PS ---
HPI HPI - Psych History of Present Illness Chief Complaint: Suicidal Informant: patient Narrative Narrative: Patient sent in by crisis for medical clearance for placement. He has been hearing voices that are getting worse, telling him to kill himself. He states it is like it was when I was at [facility] [psychiatry], telling me to jump out the window and sliced myself in the pieces. States he is not having suicidal ideation other than these command hallucinations. States he takes medication for anxiety. States he has had some vomiting and diarrhea recently, no abdominal pain or other symptoms. No fevers or chills or coughing. [facility] Medical History (Updated 04/20/22 @ 15:[address] Donn Yepez MD) Alcohol abuse Anxiety and depression Asthma Asthma Hepatitis C History of intravenous drug abuse Polysubstance abuse Home Medications albuterol sulfate 2 puff INHALATION Q4H PRN 12/10/20 [History Last Taken Unknown] Allergy/AdvReac Type Severity Reaction Status Date / Time No Known Allergies Allergy Verified 04/20/22 12:09 Social History Smoking Status: Current every day smoker tobacco type: cigarettes ROS ROS ED Constitutional Constitutional ED: Denies chills or fever(s) Eyes Eyes: Denies change in vision or diplopia ENT ENT ED: Denies rhinorrhea or sore throat Cardiovascular Cardiovascular: Denies chest pain or palpitations Respiratory/Chest Respiratory/Chest: Denies cough or dyspnea Gastrointestinal Gastrointestinal: Reports diarrhea, nausea and vomiting; Denies abdominal pain Genitourinary Genitourinary ED: Denies dysuria or hematuria Musculoskeletal Musculoskeletal: Denies back pain or neck pain Integumentary Denies abscess or rash Neurologic Neurologic: Denies headache(s), paresthesias or weakness Psychiatric Psychiatric: Reports as per HPI, anxiety, hallucinations and suicidal thoughts; Denies suicidal ideation EXAM Physical Exam Const Vital Signs: 04/20/22 12:09 04/20/22 14:08 Temperature 97.6 F L 97.6 F L Temperature Source Temporal Temporal Pulse Rate 71 66 Respiratory Rate 18 14 Blood Pressure 133/90 H 134/78 H Blood Pressure Mean 104 96 Pulse Ox 97 98 Oxygen Delivery Method Room Air Room Air Positive well nourished and well developed General Appearance ED: well developed and NAD HEENT Reports moist mucous membranes normocephalic and atraumatic Eyes PERRL and EOMs intact bilaterally Neck full ROM and supple Resp normal respiratory effort and clear to auscultation bilaterally Cardio regular rate, regular rhythm and no murmurs GI non-tender and non-distended Auscultation: normoactive bowel sounds Palpation: soft Back/Spine no CVA tenderness General Back: other FROM Extremity normal to inspection General Extremety ED: Negative for edema, pulses abnormal or tenderness General Extremity: Negative for edema or pulses abnormal Neuro oriented x3, CN's II-XII intact bilaterally and no sensory deficits noted Sensorium / Orientation: awake and alert Motor Exam: strength 5/5 throughout Psych mental status grossly normal, thought process normal, cooperative, affect normal, speech normal, denies homicidal ideation and denies suicidal ideation Skin no rashes or lesions noted and no wounds MDM MDM MDM Narrative Medical decision making narrative: Labs and toxicology obtained, patient is testing positive for cocaine but no other toxins that we were able to screen for including alcohol, and the rest of his labs and COVID are unremarkable/negative. He is medically cleared. Crisis is deemed him worthy to be transferred to a psychiatric facility and he is excepted, with transfer pending. Lab Data Attestation: I reviewed the patient's lab results. Labs: Laboratory Results - last 24 hr 04/20/22 04/20/22 04/20/22 13:00 13:00 13:00 WBC 9.0 RBC 4.67 Hgb 14.6 Hct 41.3 MCV 88.4 MCH 31.3 MCHC 35.4 RDW Std Deviation 40.0 RDW Coeff of [place] 12.4 Plt Count 270 MPV 9.4 Immature Gran % (Auto) 0.300 Neut % (Auto) 62.0 Lymph % (Auto) 31.1 [place] % (Auto) 5.2 Eos % (Auto) 1.0 Baso % (Auto) 0.4 Absolute Neuts (auto) 5.6 Absolute Lymphs (auto) 2.80 Nucleated RBC % 0 Sodium 142 Potassium 3.6 Chloride 113 H Carbon Dioxide 23.0 Anion Gap 6 BUN 8 Creatinine 0.80 Estim Creat Clear Calc 128.52 Est GFR (MDRD) Af Amer 135 Est GFR (MDRD) Non-Af 112 BUN/Creatinine Ratio 10.0 Glucose 100 Calcium 9.1 Urine Opiates Screen Urine Methadone Screen Ur Barbiturates Screen Ur Phencyclidine Scrn Ur Amphetamines Screen MDMA (Ecstasy) Screen U Benzodiazepines Scrn Urine Cocaine Screen U Cannabinoids Screen Ur Drug Screen Comment Ethyl Alcohol 4.0 04/20/22 13:42 WBC RBC Hgb Hct MCV MCH MCHC RDW Std Deviation RDW Coeff of [place] Plt Count MPV Immature Gran % (Auto) Neut % (Auto) Lymph % (Auto) [place] % (Auto) Eos % (Auto) Baso % (Auto) Absolute Neuts (auto) Absolute Lymphs (auto) Nucleated RBC % Sodium Potassium Chloride Carbon Dioxide Anion Gap BUN Creatinine Estim Creat Clear Calc Est GFR (MDRD) Af Amer Est GFR (MDRD) Non-Af BUN/Creatinine Ratio Glucose Calcium Urine Opiates Screen NEGATIVE Urine Methadone Screen NEGATIVE Ur Barbiturates Screen NEGATIVE Ur Phencyclidine Scrn NEGATIVE Ur Amphetamines Screen NEGATIVE MDMA (Ecstasy) Screen NEGATIVE U Benzodiazepines Scrn NEGATIVE Urine Cocaine Screen POSITIVE H U Cannabinoids Screen NEGATIVE Ur Drug Screen Comment Ethyl Alcohol Discharge Plan Triage Chief Complaint: Suicidal ED Provider: Donn Yepez Dx/Rx/DC Orders Clinical Impression: Acute psychosis, Cocaine abuse Prescriptions: No Action albuterol sulfate 8.5 GM HFA aerosol inhaler 2 puff INHALATION Q4H PRN (Reason: Asthma) RF: 0 Primary Care Provider: Josiah Sanchez Referrals: Josiah Sanchez MD [Primary Care Provider] - Disposition Disposition: Psychiatric Hospital or Unit
[2022-04-20] MEDS: Ondansetron ODT 4 MG Tablet 8 MG PO (13:28)
[2022-04-20 13:31] LABS: Anion Gap 6 (5-15); BUN 8 mg/dL (7-18); Calcium,Total 9.1 mg/dL (8.5-10.1); Chloride 113 mmol/L (98-107); EST Glomerular Filtration Rate 112 mL/min (>60); Est Glom Filt Rate - Afr Amer 135 mL/min (>60); Estimated Creatinine Clearance 128.52 ml/min; Glucose 100 mg/dL (74-106); Potassium 3.6 mmol/L (3.5-5.1); Sodium Level 142 mmol/L (136-145)
[2022-04-20 14:08] VITALS: BP 134/78; PULSE 66; RESP 14; TEMP 36.4; O2SAT 98
[2022-04-20 14:18] LABS: Amphetamine Urine VISTA NEGATIVE (<1000 ng/mL); Barbiturate Urine VISTA NEGATIVE (< 200 ng/mL); Benzodiazepine Urine VISTA NEGATIVE (< 200 ng/mL); Cocaine Urine VISTA POSITIVE (< 300 ng/mL); Ecstacy Urine VISTA NEGATIVE (< 500 ng/mL); Methadone Urine VISTA NEGATIVE (< 300 ng/mL); PCP Urine VISTA NEGATIVE (< 25 ng/mL); THC Urine VISTA NEGATIVE (< 50 ng/mL); Vista UDS pH Range 7
--- NOTE | 2022-04-20 15:36 | CM.ED ---
RANGEL received call from Yesika at [facility]. Accepting MD is Chichi Larios NP. RN to RN is [phone]. Patient going to ITU Unit. RANGEL updated weigh and charge worker and RN, Lior. RANGEL advised RN to call report with ETA. RN requested community planner schedule transport. RANGEL updated patient that he is going to [facility]. RANGEL called Ioana and advised her of accepting information including [facility]. RANGEL faxed pink slip to [facility]. Plan: [facility] Mila ANDRE
[2022-04-20 16:00] VITALS: BP 124/66; PULSE 68; RESP 14; TEMP 37.2; O2SAT 98
== END 2022-04-20 16:49 ==
PROVIDERS: Emergency Provider Emergency Medicine; PCP Internal Medicine; Visit Provider Emergency Medicine
DX: F23 Brief psychotic disorder (principal); F14.10 Cocaine abuse, uncomplicated; F17.210 Nicotine dependence, cigarettes, uncomplicated; J45.909 Unspecified asthma, uncomplicated
CPT/HCPCS: 36415; 80048; 80307; 82077; 85025; 87811; 99285

== ENCOUNTER 2024-01-09 12:25 | Emergency (ER) | payer MEDICAID, SELFPAY ==
[2024-01-09 12:26] VITALS: BP 176/101; PULSE 84; RESP 16; TEMP 36.4; O2SAT 99; BMI 23.6
--- NOTE | 2024-01-09 13:18 | CT_ITS ---
EXAM: CT CERVICAL SPINE WITHOUT INTRAVENOUS CONTRAST CLINICAL INDICATION: Fall TECHNIQUE: Helically acquired images were obtained of the cervical spine without intravenous contrast. 2D reformatted images were reviewed. This CT exam was performed using one or more of the following dose reduction techniques: automated exposure control, adjustment of the mA and/or kV according to patient size, and/or use of iterative reconstruction technique. RADIATION DOSE: CTDIvol = 21.48 mGy, DLP = 486.89 mGy-cm COMPARISON: No relevant prior studies available. FINDINGS: VERTEBRAE: Unremarkable. No fracture. No traumatic subluxation. No discrete lytic or blastic abnormality. Normal alignment. Normal craniocervical junction and cervicothoracic junction. DISCS/SPINAL CANAL/NEURAL FORAMINA: Unremarkable. Disc heights are preserved. No critical stenosis. SOFT TISSUES: Unremarkable. No prevertebral soft tissue swelling. LYMPH NODES: Unremarkable. No cervical adenopathy. LUNG APICES: Unremarkable as visualized. Clear. CT/Spine Cervical without Contras IMPRESSION: No evidence of acute cervical spinal fracture or spondylolisthesis. Electronically Signed: Dilip Haile MD at 14:41 EST ,
--- NOTE | 2024-01-09 13:18 | RAD_ITS ---
EXAM: XR PELVIS, 1 OR 2 VIEWS CLINICAL INDICATION: Fall TECHNIQUE: Frontal view of the pelvis. COMPARISON: Left femur radiographs of this date. FINDINGS: BONES/JOINTS: No displaced fracture. No destructive or sclerotic lesions. Note that overlapping bowel shadows may however obscure fine detail. Sacroiliac joints are unremarkable. No widening of the pubic symphysis. The articular structures are unremarkable. Mild left-sided facet arthritis noted at L5/S1. SOFT TISSUES: Unremarkable. No soft tissue swelling or gas. NOTE: The single image is submitted on a delayed basis. RAD/Pelvis 1 or 2 Views IMPRESSION: No acute fracture or dislocation. Electronically Signed: Marcos Gandara MD at 0:02 EST ,
--- NOTE | 2024-01-09 13:18 | CT_ITS ---
EXAM: CT HEAD WITHOUT INTRAVENOUS CONTRAST CLINICAL INDICATION: Fall TECHNIQUE: Multiple axial images were obtained of the head without intravenous contrast. This CT exam was performed using one or more of the following dose reduction techniques: automated exposure control, adjustment of the mA and/or kV according to patient size, and/or use of iterative reconstruction technique. RADIATION DOSE: CTDIvol = 44.99 mGy, DLP = 812.98 mGy-cm COMPARISON: No relevant prior studies available. FINDINGS: BRAIN AND EXTRA-AXIAL SPACES: Unremarkable. No intra- or extra-axial hemorrhage. No evidence of acute infarct. No intracranial mass or mass effect. There is preservation of the bolaons/white matter interface. Posterior fossa structures are unremarkable. Ventricles are appropriate for age. No hydrocephalus. Basal cisterns are patent. BONES/JOINTS: Unremarkable. No discrete lytic or blastic abnormalities. SINUSES: Unremarkable as visualized. Clear. MASTOID AIR CELLS: Unremarkable. Clear. ORBITS: Visualized globes, extraocular muscles, optic nerves and retrobulbar fat appear unremarkable. CT/Brain/Head without Contrast IMPRESSION: Negative head/brain CT without intravenous contrast. Electronically Signed: Dilip Haile MD at 14:30 EST ,
--- NOTE | 2024-01-09 13:18 | RAD_ITS ---
EXAM: XR LEFT FEMUR, 2 VIEWS CLINICAL INDICATION: Fall TECHNIQUE: Frontal and lateral views of the left femur. COMPARISON: No relevant prior studies available. FINDINGS: BONES/JOINTS: Unremarkable. No acute fracture. No subluxation. Normal alignment. Preservation of the joint space. No sclerotic or destructive changes observed. SOFT TISSUES: Unremarkable. No soft tissue swelling or gas. No radiopaque foreign body. RAD/Femur Min 2 Views IMPRESSION: Negative left femur x-rays. Electronically Signed: Dilip Haile MD at 14:50 EST ,
--- NOTE | 2024-01-09 13:21 | RAD_ITS ---
EXAM: XR CHEST, 1 VIEW CLINICAL INDICATION: Fall TECHNIQUE: Frontal view of the chest. COMPARISON: 02/02/2021 FINDINGS: LUNGS AND PLEURAL SPACES: Unremarkable. No consolidation or edema. No pneumothorax. No effusion. HEART: Unremarkable. Cardiac silhouette not enlarged. MEDIASTINUM: Central airways and mediastinal contour are unremarkable. BONES/JOINTS: Unremarkable. No acute fracture. SOFT TISSUES: Unremarkable. RAD/Chest 1 View (Portable) IMPRESSION: No radiographic evidence of acute cardiopulmonary disease. Electronically Signed: Dilip Haile MD at 14:49 EST ,
--- NOTE | 2024-01-09 13:46 | EDS_ITS ---
HPI <Jessica Russo RN - Last Filed: 01/09/24 15:58> History of Present Illness Chief Complaint: Fall Detail of Chief Complaint: Fall approximately 4 feet Informant: patient Onset/Context/Timing Onset: Today Context: Onset with activity Timing: Continuous Quality: Throbbing Location: [place] of the head Current Severity: 8/10 Maximum Severity: 7/10 Worsened by: Palpation Relieved by: Rest Associated Symptoms Associated Symptoms: Photosensitivity, activity Narrative Narrative: Patient presents to the ED via EMS after sustaining a fall from rafters in his shed. Patient reports the fall was approximately 4 feet. Patient reports possibly landing on his head or his feet. Patient also says he may have passed out . Patient reports thinking there was a bomb in the shed and he climbed up in the rafters. He then called his family to say nikita and asked his father to call 911. This shed is located on his parents property. His parents then came out to attempt to open the shed doors which were wired closed from the inside by the patient. Patient reports he also called 911. arrived on scene and was able to encourage patient to come down from rafters. While attempting to come down from rafters, patient reports the items he used to get up into the rafters had fallen over causing him to then fall. When asked he reports he may have landed on his head or his feet. He reports a headache and left hamstring pain. He reports prior history of migraines and this headache feels similar, but worse. He also reports photosensitivity. Denies numbness or tingling. He was able to ambulate into the ED room. Patient reports history of migraines, asthma, schizophrenia, and anxiety. He states he is currently suicidal in which his plan involves using heroin. Patient denies access to guns or knives. Patient reports audible and visual hallucinations. He reports he has been off his psychiatric meds for approximately 1 year. He states he just got a refill for his medications 3 days prior but has only taken the Zyprexa. He indicates that his primary care physician would not refill his Haldol or Wellbutrin. Patient also states he has been seen by the counseling center 1 year ago. Reports he was going to [facility] for recovery and assistance in filling his psychiatric meds. He has not been seen there for approximately 2 months. Patient reports he does not drive and has to rely on others for a ride. Patient states he lives in his shed on his parents property. He reports they tolerate him living there . He reports current limited access to food as he has been unable to reactivate his food card. He also reports that he has a fear of stepping off the concrete pad under the shed because he is afraid of what might happen . He reports not sleeping at night due to extreme fear of something bad happening to him. He reports he will use meth to keep him awake at night. Patient reports last alcohol use was yesterday in which he had 1 beer. He reports last meth use was 4 to 6 days ago. He reports using opiates either snorting or injecting. Last use was 1 month ago. He also reports he was on Suboxone but has been off of that for 2 months. Prior similar symptoms: No Recent Illness/Hospitalization: No PFSH <Jessica Russo RN - Last Filed: 01/09/24 15:58> [facility] Medical History Alcohol abuse Anxiety and depression Asthma Asthma Hepatitis C History of intravenous drug abuse Polysubstance abuse Schizophrenia Home Medications albuterol sulfate 90 mcg/actuation aerosol inhaler 2 puff inhalation Q4H PRN Asthma 12/10/20 [History Last Taken Unknown] Allergy/AdvReac Type Severity Reaction Status Date / Time No Known Allergies Allergy Verified 01/09/24 12:26 Social History Smoking Status: Current every day smoker tobacco type: cigarettes ROS <Jessica Russo RN - Last Filed: 01/09/24 15:58> ROS ED Constitutional Constitutional ED: Denies chills, fever(s), sweats or weight loss Eyes Eyes: Reports other Details: Photosensitivity ; Denies blurry vision, change in vision or diplopia ENT ENT ED: Denies ear pain, rhinorrhea or sore throat Cardiovascular Cardiovascular: Denies chest pain or palpitations Respiratory/Chest Respiratory/Chest: Denies cough or dyspnea Gastrointestinal Gastrointestinal: Denies abdominal pain, diarrhea, nausea or vomiting Genitourinary Genitourinary ED: Denies dysuria, hematuria or urinary frequency Musculoskeletal Musculoskeletal: Reports myalgias; Denies arthralgias Integumentary Reports Abrasions Neurologic Neurologic: Reports headache(s); Denies paresthesias or weakness Psychiatric Psychiatric: Reports anxiety, suicidal ideation and suicidal thoughts EXAM <Jessica Russo RN - Last Filed: 01/09/24 15:58> Physical Exam Narrative Exam Narrative: Patient anxious, disheveled, and unkempt. Patient wearing multiple layers of wet clothing. Const Vital Signs: 01/09/24 12:26 01/09/24 12:25 Temperature 97.6 F L Temperature Source Temporal Pulse Rate 84 Respiratory Rate 16 Respiratory Effort Normal Respiratory Depth Normal Respiratory Pattern Normal Blood Pressure 176/101 H Blood Pressure Mean 126 Pulse Ox 99 Oxygen Delivery Method Room Air Room Air Positive well nourished and unkempt General Appearance ED: unkempt and NAD HEENT Reports moist mucous membranes trauma and tenderness Eyes PERRL Eyes Narrative: Lateral nystagmus noted. Neck no lymphadenopathy, supple and no JVD General: Negative for tenderness Chest Wall inspection of chest normal and palpation of chest normal Chest Narrative: Prior surgical scar noted in the epigastric region. No redness or drainage noted. Patient I am able to recall type of surgery. Resp normal respiratory effort Effort and Inspection: Negative for pain with movement Auscultation: wheezes expiratory wheezes and throughout; Negative for rales or rhonchi Cardio regular rate, regular rhythm, S1 normal heart sound and S2 normal heart sound GI normal to inspection, nondistended, normoactive bowel sounds and non-tender Auscultation: normoactive bowel sounds Palpation: soft Extremity Extremity Narrative: Tenderness to left hamstring area. General Extremety ED: Yes tenderness; Negative for edema General Extremity: Negative for edema Neuro oriented x3 Sensorium / Orientation: alert Motor Exam: strength 5/5 throughout Psych Appearance: unkempt Mood & Affect: anxious Skin Skin Narrative: Multiple abrasions noted to bilateral hands and wrists. Bilateral hands are reddened. Feet with scattered reddened areas throughout. All sites without drainage. Trauma: abrasion <Dr. Marlyn Cross MD - Last Filed: 01/09/24 16:19> Physical Exam Const Vital Signs: 01/09/24 12:26 01/09/24 12:25 Temperature 97.6 F L Temperature Source Temporal Pulse Rate 84 Respiratory Rate 16 Respiratory Effort Normal Respiratory Depth Normal Respiratory Pattern Normal Blood Pressure 176/101 H Blood Pressure Mean 126 Pulse Ox 99 Oxygen Delivery Method Room Air Room Air MDM <Jessica Russo RN - Last Filed: 01/09/24 15:58> [facility] Narrative Medical decision making narrative: All of patient's but clothing was removed. Labwork obtained to evaluate for leukocytosis, anemia, and electrolyte derangement. Urine tox screen was obtained. CT head and C-spine was obtained to rule out fractures or intracranial hemorrhage.. Chest x-ray, pelvis, and left femur x-rays were ordered to rule out fractures. History & Record Review Discussion w/independent historian: Patient Lab Data Attestation: I reviewed the patient's lab results. Labs: Laboratory Results - last 24 hr 01/09/24 01/09/24 13:25 13:55 WBC 7.6 RBC 4.31 L Hgb 14.0 Hct 40.8 MCV 94.7 H MCH 32.5 H MCHC 34.3 RDW Std Deviation 40.8 RDW Coeff of [place] 11.8 Plt Count 280 MPV 8.7 Immature Gran % (Auto) 0.100 Neut % (Auto) 57.5 Lymph % (Auto) 31.5 [place] % (Auto) 5.1 Eos % (Auto) 5.3 H Baso % (Auto) 0.5 Absolute Neuts (auto) 4.4 Absolute Lymphs (auto) 2.39 Nucleated RBC % 0 Sodium 140 Potassium 3.7 Chloride 110 H Carbon Dioxide 28.0 Anion Gap 2 L BUN 11 Creatinine 0.78 Estim Creat Clear Calc 129.89 Est GFR (MDRD) Af Amer 137 Est GFR (MDRD) Non-Af 114 BUN/Creatinine Ratio 14.1 Glucose 93 Calcium 9.1 Urine Opiates Screen NEGATIVE Urine Methadone Screen NEGATIVE Ur Barbiturates Screen NEGATIVE Ur Phencyclidine Scrn NEGATIVE Ur Amphetamines Screen POSITIVE H MDMA (Ecstasy) Screen NEGATIVE U Benzodiazepines Scrn NEGATIVE Urine Cocaine Screen NEGATIVE U Cannabinoids Screen NEGATIVE Ur Drug Screen Comment Ethyl Alcohol < 3.0 Radiography Diagnostic Testing: Clinical Impression(s) from Imaging Studies Brain CT 01/09/24 13:18 IMPRESSION: Negative head/brain CT without intravenous contrast. Electronically Signed: Dilip Haile MD at 14:30 EST , Cervical Spine CT 01/09/24 13:18 IMPRESSION: No evidence of acute cervical spinal fracture or spondylolisthesis. Electronically Signed: Dilip Haile MD at 14:41 EST , Femur X-Ray 01/09/24 13:18 IMPRESSION: Negative left femur x-rays. Electronically Signed: Dilip Haile MD at 14:50 EST , Chest X-Ray 01/09/24 13:21 IMPRESSION: No radiographic evidence of acute cardiopulmonary disease. Electronically Signed: Dilip Haile MD at 14:49 EST , Differential Diagnosis Differential Diagnosis: Intracranial hemorrhage Differential Diagnosis: Left femur fracture Management Discussion w/another healthcare provider: Other (Dr. Cross, ED provider) Treatment and Re-Evaluation :: Due to the patient admitting to suicidal ideation with a plan, patient was placed in suicide precautions. Lab work and imaging reviewed. CBC shows a normal white count of 7.6, hemoglobin 14, and platelets 280. Chemistries are normal with the exception of a slightly elevated chloride at 110. Urine tox screen is positive for amphetamines. Patient reports he had used meth approximately 4 to [address] is negative for intracranial hemorrhage. CT C-spine negative for fractures. Chest x-ray negative for fractures or acute lung process. Pelvis x-ray negative for fracture. Left femur x-ray negative for fracture. Patient given Ativan for anxiety and restlessness. After all lab work and imaging reviewed, crisis was consulted due to suicidal ideation. It will be sometime before crisis it is able to evaluate patient. Therefore handoff will be provided to oncoming ED provider. Patient seen and evaluated with [facility] student. I personally interviewed and examined the patient. I was involved in all aspects of patient's orders, int erpretation of results, and treatment. Patient presents via EMS after a fall. Patient has a history of paranoid schizophrenia and has been off his medications for quite some time. Reportedly he has been taking meth to get himself up at night. He has had paranoid thoughts with auditory and visual hallucinations. Today he <Dr. Marlyn Cross MD - Last Filed: 01/09/24 16:19> [facility] Lab Data Labs: Laboratory Results - last 24 hr 01/09/24 01/09/24 13:25 13:55 WBC 7.6 RBC 4.31 L Hgb 14.0 Hct 40.8 MCV 94.7 H MCH 32.5 H MCHC 34.3 RDW Std Deviation 40.8 RDW Coeff of [place] 11.8 Plt Count 280 MPV 8.7 Immature Gran % (Auto) 0.100 Neut % (Auto) 57.5 Lymph % (Auto) 31.5 [place] % (Auto) 5.1 Eos % (Auto) 5.3 H Baso % (Auto) 0.5 Absolute Neuts (auto) 4.4 Absolute Lymphs (auto) 2.39 Nucleated RBC % 0 Sodium 140 Potassium 3.7 Chloride 110 H Carbon Dioxide 28.0 Anion Gap 2 L BUN 11 Creatinine 0.78 Estim Creat Clear Calc 129.89 Est GFR (MDRD) Af Amer 137 Est GFR (MDRD) Non-Af 114 BUN/Creatinine Ratio 14.1 Glucose 93 Calcium 9.1 Urine Opiates Screen NEGATIVE Urine Methadone Screen NEGATIVE Ur Barbiturates Screen NEGATIVE Ur Phencyclidine Scrn NEGATIVE Ur Amphetamines Screen POSITIVE H MDMA (Ecstasy) Screen NEGATIVE U Benzodiazepines Scrn NEGATIVE Urine Cocaine Screen NEGATIVE U Cannabinoids Screen NEGATIVE Ur Drug Screen Comment Ethyl Alcohol < 3.0 Radiography Diagnostic Testing: Clinical Impression(s) from Imaging Studies Brain CT 01/09/24 13:18 IMPRESSION: Negative head/brain CT without intravenous contrast. Electronically Signed: Dilip Haile MD at 14:30 EST , Cervical Spine CT 01/09/24 13:18 IMPRESSION: No evidence of acute cervical spinal fracture or spondylolisthesis. Electronically Signed: Dilip Haile MD at 14:41 EST , Femur X-Ray 01/09/24 13:18 IMPRESSION: Negative left femur x-rays. Electronically Signed: Dilip Haile MD at 14:50 EST , Chest X-Ray 01/09/24 13:21 IMPRESSION: No radiographic evidence of acute cardiopulmonary disease. Electronically Signed: Dilip Haile MD at 14:49 EST , Treatment and Re-Evaluation :: Due to the patient admitting to suicidal ideation with a plan, patient was placed in suicide precautions. Lab work and imaging reviewed. CBC shows a normal white count of 7.6, hemoglobin 14, and platelets 280. Chemistries are normal with the exception of a slightly elevated chloride at 110. Urine tox screen is positive for amphetamines. Patient reports he had used meth appr oximately 4 to [address] is negative for intracranial hemorrhage. CT C-spine negative for fractures. Chest x-ray negative for fractures or acute lung process. Pelvis x-ray negative for fracture. Left femur x-ray negative for fracture. Patient given Ativan for anxiety and restlessness. After all lab work and imaging reviewed, crisis was consulted due to suicidal ideation. It will be sometime before crisis it is able to evaluate patient. Therefore handoff will be provided to oncoming ED provider. Patient seen and evaluated with [facility] student. I personally interviewed and examined the patient. I was involved in all aspects of patient's orders, interpretation of results, and treatment. Patient presents via EMS after a fall. Patient has a history of paranoid schizophrenia and has been off his medications for quite some time. Reportedly he has been taking meth to get himself up at night. He has had paranoid thoughts with auditory and visual hallucinations. Today he reportedly was hiding in the rafters of his storage barn and thought that there was a bomb in the barn. He reportedly had called his parents to say goodbye. When asked specifically that suicidal ideation he reported thoughts of suicide with a plan to overdose on heroin. At this time patient is complaining of pain to the vertex of his head from his fall. As they were trying to get him down from the rafters at the storage where he fell and struck his head. He complains of pain to his left hamstring as well. Patient sitting upright in bed no acute distress Anxious and fidgeting. Head neck examination was no external sign of trauma. No scalp hematoma appreciated. No lacerations. No C-spine tenderness on exam. Heart is regular rate and rhythm. Lung sounds are clear. Abdomen is soft with no focal tenderness. Extremity examination feels mild muscular tenderness in the posterior left thigh. Full range of motion of the hip. Lab work for psychiatric clearance is obtained along with imaging studies. CT scan of the head and C-spine revealed no evidence of acute trauma or fracture. Chest x-ray per my interpretation reveals no obvious rib fracture or pneumothorax. Radiology interpretation reviewed and agrees. Pelvis x-ray per my interpretation reveals no fracture. Radiology interpretation reviewed and agrees. Left femur x-rays per my interpretation reveal no fracture. CBC was normal white count at 7.6 with a hemoglobin of 14. Chemistry studies are unremarkable. EtOH is less than 3. Talk screen is positive for amphet amines. Patient is cleared for psychiatric evaluation. Crisis has been contacted and will be in to see the patient. He is given a dose of p.o. Ativan at this time to help with anxiety. Discharge Plan Triage Chief Complaint: Fall ED Provider: Marlyn Cross Dx/Rx/DC Orders Clinical Impression: Muscle strain, Suicidal ideation, Paranoia, Contusion of scalp, Fall Prescriptions: No Action albuterol sulfate 8.5 GM HFA aerosol inhaler 2 puff INHALATION Q4H PRN (Reason: Asthma) Primary Care Provider: Josiah Sanchez Referrals: Josiah Sanchez MD [Primary Care Provider] -
--- OUTSIDE RECORDS SUMMARY | 2024-01-09 13:49 | XMS RPT_ITS | CCD ---
Author Name Unknown Address [address] [place] [address] Organization [facility] Care Team Providers Care Consulting Property Manager Name Role Phone Unavailable Primary Care Provider Ana Laura Turner Primary Care Provider [phone] Unavailable Primary Care Provider UnavailANA LAURA De León Referring Unavailable No Family, Physician Primary Care Unavailable MARLEN GODINEZ Attending Unavailable Josiah Pratt MD Primary Care Provider [phone] Josiah Pratt MD Primary Care Provider [phone] MARTA MCGARRY Attending Unavailable CARLOTA LUX Attending Unavailable Josiah Pratt MD Primary Care Provider [phone] DESTINEE GASTELUM Referring Unavailable JOSIAH PRATT Primary Care Unavailable JOSIAH PRATT Attending Unavailable JOSIAH PRATT Primary Care Unavailable JOSIAH PRATT Primary Care Unavailable DESTINEE GASTELUM Attending Unavailable JOSIAH PRATT Primary Care Unavailable Medications Current Medications Medication Drug Class(es) Dates Sig (Normalized) Sig (Original) albuterol sulfate HFA 108 (90 Base) MCG/ACT inhaler (1 source) take 2 puff(s) by inhalation every six hours as needed for wheezing albuterol sulfate HFA 108 (90 Base) MCG/ACT inhaler Inhale 2 puffs into the lungs every 6 hours as needed for Wheezing 0 Active Budesonide-Formotero l Fumarate (SYMBICORT IN) (2 sources) Budesonide-Formo ter ol Fumarate (SYMBICORT IN) Inhale into the lungs 0 Active Buprenorphine HCl-Naloxone HCl (SUBOXONE SL) (2 sources) Buprenorphine HCl-Naloxone HCl (SUBOXONE SL) Place under the tongue States 4-8mg QD 0 Active citalopram 20 mg oral tablet (11 sources) Serotonin Reuptake Inhibitor Start: 09-18-2021 CeleXA 20 MG Oral Tablet 09/18/2021 Provider: Ana Laura Taho OIL WELL LOGGING ENGINEER Completed/Discontinued Medications Medication Drug Class(es) Dates Sig (Normalized) Sig (Original) acetaminophen 500 mg oral tablet (1 source) Start: 10-21-2023 End: 10-21-2023 acetaminophen 500 mg tab(s) (TYLENOL) [id number] 200 actuat albuterol 0.09 mg/actuat metered dose inhaler (20 sources) beta2-Adrenergic Agonist Start: 11-28-2021 End: 12-29-2023 take 2 puff(s) by inhalation every four hours as needed for wheezing albuterol HFA (PROVENTIL HFA, VENTOLIN HFA) 90 mcg/actuation inhaler Indications: Moderate persistent asthma without complication Inhale 2 Puffs as instructed every 4 hours as needed for wheezing/shortness of breath. 1 Each 5 12/29/2023 Active Problems Active Problems Problem Classification Problem Date Documented Date Episodic/Chronic Administrative/social admission (2 sources) Homeless; Translations: [Homelessness] Onset: 12-29-2023 12-29-2023 Episodic Alcohol-related disorders (2 sources) Alcohol abuse, uncomplicated; Translations: [Alcohol abuse. uncomplicated] Onset: 04-13-2023 Chronic Anxiety disorders (20 sources) Posttraumatic stress disorder; Translations: [Post-traumatic stress disorder, unspecified] Onset: 08-27-2021 Chronic Asthma (20 sources) Asthma; Translations: [Mild persistent asthma, uncomplicated] Onset: 05-30-2021 Chronic E Codes: Fall (1 source) Fall on same level from slipping, tripping and stumbling without subsequent striking against object, initial encounter; Translations: [Fall on same level from slipping, tripping and stumbling without subsequent striking against object, initial encounter] Onset: 03-25-2023 Episodic Mood disorders (20 sources) Depressive disorder; Translations: [Depressive disorder, not elsewhere classified] Onset: 08-27-2021 Chronic Nonspecific chest pain (2 sources) Chest pain; Translations: [Chest pain, unspecified] Onset: 03-24-2023 Episodic Open wounds of head; neck; and trunk (1 source) Laceration of right eyebrow; Translations: [Laceration without foreign body of right eyelid and periocular area, initial encounter] 10-21-2023 Episodic Other connective tissue disease (1 source) Pain in finger of right hand; Translations: [Pain in right finger(s)] 09-29-2023 Episodic Other infections; including parasitic (1 source) History of hepatitis C; Translations: [Personal history of other infectious and parasitic diseases] 09-29-2023 Episodic Other infections; including parasitic (1 source) Personal history of other infectious and parasitic diseases; Translations: [History of hepatitis C] Onset: 12-29-2023 Episodic Other injuries and conditions due to external causes (1 source) H/O: injury; Translations: [Personal history of other (healed) physical injury and trauma] Episodic Other injuries and conditions due to external causes (1 source) Injury of finger of right hand; Translations: [Unspecified injury of right wrist, hand and finger(s), initial encounter] 09-29-2023 Episodic Other injuries and conditions due to external causes (1 source) Injury of head; Translations: [Unspecified injury of head, initial encounter] 10-21-2023 Episodic Other screening for suspected conditions (not mental disorders or infectious disease) (10 sources) Encounter for screening for diabetes mellitus; Translations: [Diabetes Risk Test Score] Onset: 08-27-2021 Episodic Schizophrenia and other psychotic disorders (2 sources) Schizophrenia; Translations: [Schizophrenia, unspecified] Onset: 09-29-2023 09-29-2023 Chronic Sprains and strains (1 source) Sprain of unspecified part of right wrist and hand, initial encounter; Translations: [Sprain of unspecified part of right wrist and hand, initial encounter] Onset: 03-25-2023 Episodic Substance-related disorders (20 sources) Opioid abuse; Translations: [Opioid abuse, uncomplicated] Onset: 05-30-2021 Chronic Past or Other Problems Problem Classification Problem Date Documented Da te Episodic/Chronic Immunizations and screening for infectious disease (10 sources) Vaccination needed; Translations: [Encounter for immunization] Onset: 04-09-2022 Episodic Other connective tissue disease (1 source) Pain in right finger(s); Translations: [Pain in right finger(s)] Onset: 09-29-2023 Episodic Other injuries and conditions due to external causes (1 source) Unspecified injury of right wrist, hand and finger(s), initial encounter; Translations: [Injury of finger of right hand, initial encounter] Onset: 09-29-2023 Episodic Other lower respiratory disease (8 sources) Rib pain; Translations: [Pleurodynia] Onset: 11-28-2021 Episodic Residual codes; unclassified (20 sources) Finding of body mass index; Translations: [Body mass index (observable entity)] Onset: 08-27-2021 Episodic Residual codes; unclassified (3 sources) History of drug abuse; Translations: [Personal history of other specified conditions] Onset: 05-30-2021 11-28-2021 Episodic Results Test Name Value Interpretation Reference Range Facil ity Vital Signs Date Time Vital Sign Value Performing Clinician Faci lity 12-29-2023 08:48-0500 Diastolic blood pressure 84 mm[Hg] Josiah Pratt MD Work Phone: [facility] 12-29-2023 08:48-0500 Heart rate 91 /min Josiah Pratt MD Work Phone: [facility] 12-29-2023 08:48-0500 Systolic blood pressure 136 mm[Hg] Josiah Pratt MD Work Phone: [facility] 12-29-2023 08:39-0500 Body temperature 98.1 [degF] Josiah Pratt MD Work Phone: [facility] 12-29-2023 08:39-0500 Body weight 80.74 kg Josiah Pratt MD Work Phone: [facility] 12-29-2023 08:39-0500 Respiratory rate 18 /min Josiah Pratt MD Work Phone: [facility] 10-21-2023 15:49-0500 Body temperature 97.3 [degF] Jerzy Zuniga MD Work Phone: [facility] 10-21-2023 15:49-0500 Body weight 80.65 kg Jerzy Zuniga MD Work Phone: [facility] 10-21-2023 15:49-0500 Diastolic blood pressure 84 mm[Hg] Jerzy Zuniga MD Work Phone: [facility] 10-21-2023 15:49-0500 Heart rate 101 /min Jerzy Zuniga MD Work Phone: [facility] 10-21-2023 15:49-0500 Respiratory rate 16 /min Jerzy Zuniga MD Work Phone: [facility] 10-21-2023 15:49-0500 SaO2% (BldA) [Mass fraction] 96 % Jerzy Zuniga MD Work Phone: [facility] 10-21-2023 15:49-0500 Systolic blood pressure 144 mm[Hg] Jerzy Zuniga MD Work Phone: [facility] 09-29-2023 18:16-0500 Body height 80 cm Destinee Older TEA BLENDER.SLIP COVER SEWER Work Phone: [facility] 09-29-2023 18:16-0500 Body weight 78.93 kg Destinee Older TEA BLENDER.SLIP COVER SEWER Work Phone: [facility] 09-29-2023 18:16-0500 Diastolic blood pressure 88 mm[Hg] Destinee Older TEA BLENDER.SLIP COVER SEWER Work Phone: [facility] 09-29-2023 18:16-0500 Heart rate 78 /min Destinee Older TEA BLENDER.SLIP COVER SEWER Work Phone: [facility] 09-29-2023 18:16-0500 Respiratory rate 18 /min Destinee Older TEA BLENDER.SLIP COVER SEWER Work Phone: [facility] 09-29-2023 18:16-0500 SaO2% (BldA) [Mass fraction] 96 % Destinee Older TEA BLENDER.SLIP COVER SEWER Work Phone: [facility] 09-29-2023 18:16-0500 Systolic blood pressure 130 mm[Hg] Destinee Older TEA BLENDER.SLIP COVER SEWER Work Phone: [facility] 04-09-2022 16:53-0400 Body temperature 98.4 [degF] Josiah Pratt MD Work Phone: [facility] 04-09-2022 16:53-0400 Body weight 82.56 kg Josiah Pratt MD Work Phone: [facility] 04-09-2022 16:53-0400 Diastolic blood pressure 76 mm[Hg] Josiah Pratt MD Work Phone: [facility] 04-09-2022 16:53-0400 Heart rate 80 /min Josiah Pratt MD Work Phone: [facility] 04-09-2022 16:53-0400 Respiratory rate 18 /min Josiah Pratt MD Work Phone: [facility] 04-09-2022 16:53-0400 Systolic blood pressure 136 mm[Hg] Josiah Pratt MD Work Phone: [facility] 09-18-2021 11:39-0400 Body height 182.88 cm Ana Laura Thao OIL WELL LOGGING ENGINEER Work Phone: [facility] Work Phone: 09-18-2021 11:39-0400 Body mass index (BMI) [Ratio] 23.5 kg/m2 Ana Laura Thao OIL WELL LOGGING ENGINEER Work Phone: [facility] Work Phone: 09-18-2021 11:39-0400 Body surface area Derived from formula 2 m2 Ana Laura Longjorge OIL WELL LOGGING ENGINEER Work Phone: [facility] Work Phone: 09-18-2021 11:39-0400 Body temperature 96.5 [degF] Ana Laura Longjorge OIL WELL LOGGING ENGINEER Work Phone: [facility] Work Phone: 09-18-2021 11:39-0400 Body weight 78.47 kg Ana Laura Thao OIL WELL LOGGING ENGINEER Work Phone: [facility] Work Phone: 09-18-2021 11:39-0400 Diastolic blood pressure 80 mm[Hg] Ana Laura Longoff OIL WELL LOGGING ENGINEER Work Phone: [facility] Work Phone: 09-18-2021 11:39-0400 Heart rate 55 /min Ana Laura Longoff OIL WELL LOGGING ENGINEER Work Phone: [facility] Work Phone: 09-18-2021 11:39-0400 Respiratory rate 18 /min Ana Laura Longoff OIL WELL LOGGING ENGINEER Work Phone: [facility] Work Phone: 09-18-2021 11:39-0400 SaO2% (BldA) [Mass fraction] 99 % Ana Laura Ethanoff OIL WELL LOGGING ENGINEER Work Phone: [facility] Work Phone: 09-18-2021 11:39-0400 Systolic blood pressure 130 mm[Hg] Ana Laura Longoff OIL WELL LOGGING ENGINEER Work Phone: [facility] Work Phone: 09-08-2021 15:26-0400 Body height 182.88 cm Ana Laura Longoff OIL WELL LOGGING ENGINEER Work Phone: [facility] Work Phone: 09-08-2021 15:26-0400 Body mass index (BMI) [Ratio] 24.3 kg/m2 Ana Laura Longoff OIL WELL LOGGING ENGINEER Work Phone: [facility] Work Phone: 09-08-2021 15:26-0400 Body surface area Derived from formula 2.03 m2 Ana Laura Ethanoff OIL WELL LOGGING ENGINEER Work Phone: [facility] Work Phone: 09-08-2021 15:26-0400 Body temperature 98.2 [degF] Ana Laura Boroff OIL WELL LOGGING ENGINEER Work Phone: [facility] Work Phone: 09-08-2021 15:26-0400 Body weight 81.19 kg Ana Laura Longoff OIL WELL LOGGING ENGINEER Work Phone: [facility] Work Phone: 09-08-2021 15:26-0400 Diastolic blood pressure 80 mm[Hg] Ana Laura Longoff OIL WELL LOGGING ENGINEER Work Phone: [facility] Work Phone: 09-08-2021 15:26-0400 Heart rate 60 /min Ana Laura Thao OIL WELL LOGGING ENGINEER Work Phone: [facility] Work Phone: 09-08-2021 15:26-0400 Heart Rate Rhythm 1 1 Ana Laura Thao OIL WELL LOGGING ENGINEER Work Phone: [facility] Work Phone: 09-08-2021 15:26-0400 Respiratory rate 18 /min Ana Laura Thao OIL WELL LOGGING ENGINEER Work Phone: [facility] Work Phone: 09-08-2021 15:26-0400 SaO2% (BldA) [Mass fraction] 99 % Ana Laura Longoff OIL WELL LOGGING ENGINEER Work Phone: [facility] Work Phone: 09-08-2021 15:26-0400 Systolic blood pressure 130 mm[Hg] Ana Laura Longoff OIL WELL LOGGING ENGINEER Work Phone: [facility] Work Phone: 09-01-2021 09:05-0400 Body height 182.88 cm Ana Laura Longoff OIL WELL LOGGING ENGINEER Work Phone: [facility] Work Phone: 09-01-2021 09:05-0400 Body mass index (BMI) [Ratio] 23.9 kg/m2 Ana Laura REEDP Work Phone: [facility] Work Phone: 09-01-2021 09:05-0400 Body surface area Derived from formula 2.02 m2 Ana Laura Thao OIL WELL LOGGING ENGINEER Work Phone: [facility] Work Phone: 09-01-2021 09:05-0400 Body temperature 98.5 [degF] Ana Laura REEDP Work Phone: [facility] Work Phone: 09-01-2021 09:05-0400 Body weight 79.83 kg Ana Laura Thao OIL WELL LOGGING ENGINEER Work Phone: [facility] Work Phone: 09-01-2021 09:05-0400 Diastolic blood pressure 84 mm[Hg] Ana Laura REEDP Work Phone: [facility] Work Phone: 09-01-2021 09:05-0400 Heart rate 73 /min Ana Laura REEDP Work Phone: [facility] Work Phone: 09-01-2021 09:05-0400 Heart Rate Rhythm 1 1 Ana Laura REEDP Work Phone: [facility] Work Phone: 09-01-2021 09:05-0400 Respiratory rate 18 /min Ana Laura REEDP Work Phone: [facility] Work Phone: 09-01-2021 09:05-0400 SaO2% (BldA) [Mass fraction] 99 % Ana Laura Thao OIL WELL LOGGING ENGINEER Work Phone: [facility] Work Phone: 09-01-2021 09:05-0400 Systolic blood pressure 130 mm[Hg] Ana Laura Boroff OIL WELL LOGGING ENGINEER Work Phone: [facility] Work Phone: 08-27-2021 08:26-0400 Body height 182.88 cm Ana Laura Boroff OIL WELL LOGGING ENGINEER Work Phone: [facility] Work Phone: 08-27-2021 08:26-0400 Body mass index (BMI) [Ratio] 23.3 kg/m2 Ana Laura Boroff OIL WELL LOGGING ENGINEER Work Phone: [facility] Work Phone: 08-27-2021 08:26-0400 Body surface area Derived from formula 2 m2 Ana Laura Boroff OIL WELL LOGGING ENGINEER Work Phone: [facility] Work Phone: 08-27-2021 08:26-0400 Body temperature 96.4 [degF] Ana Laura Boroff OIL WELL LOGGING ENGINEER Work Phone: [facility] Work Phone: 08-27-2021 08:26-0400 Body weight 78.02 kg Ana Laura Boroff OIL WELL LOGGING ENGINEER Work Phone: [facility] Work Phone: 08-27-2021 08:26-0400 Diastolic blood pressure 80 mm[Hg] Ana Laura Boroff OIL WELL LOGGING ENGINEER Work Phone: [facility] Work Phone: 08-27-2021 08:26-0400 Heart rate 64 /min Ana Laura Boroff OIL WELL LOGGING ENGINEER Work Phone: [facility] Work Phone: 08-27-2021 08:26-0400 Respiratory rate 18 /min Ana Laura Boroff OIL WELL LOGGING ENGINEER Work Phone: [facility] Work Phone: 08-27-2021 08:26-0400 SaO2% (BldA) [Mass fraction] 99 % Ana Laura Thao OIL WELL LOGGING ENGINEER Work Phone: [facility] Work Phone: 08-27-2021 08:26-0400 Systolic blood pressure 130 mm[Hg] Ana Laura Thao OIL WELL LOGGING ENGINEER Work Phone: [facility] Work Phone: 08-03-2021 17:52-0400 Body height 182.9 cm [employer] Work Phone: [employer] Phone: 08-03-2021 17:52-0400 Body mass index (BMI) [Ratio] 23.06 kg/m2 [employer] Work Phone: [employer] Work Phone: 08-03-2021 17:52-0400 Body temperature 98.8 [degF] [employer] Work Phone: [employer] Phone: 08-03-2021 17:52-0400 Body weight 77.11 kg [employer] Phone: [employer] Phone: 08-03-2021 17:52-0400 Diastolic blood pressure 96 mm[Hg] [employer] Work Phone: [employer] Phone: 08-03-2021 17:52-0400 Heart rate 96 /min [employer] Work Phone: [employer] Phone: 08-03-2021 17:52-0400 Respiratory rate 16 /min [employer] Phone: [employer] Phone: 08-03-2021 17:52-0400 SaO2% (BldA) [Mass fraction] 98 % [employer] Work Phone: [employer] Work Phone: 08-03-2021 17:52-0400 Systolic blood pressure 145 mm[Hg] [employer] Work Phone: [employer] Work Phone: Encounters Encounter Date Encounter Type Care Provider Facility Start: 12-29-2023 End: 12-29-2023 ambulatory JOSIAH PRATT Facility:[facility] Start: 12-29-2023 End: 12-29-2023 Patient encounter procedure Josiah Pratt MD Work Phone: [facility] Procedures Date Procedure Procedure Detail Performing Clinician Start: 09-29-2023 INFLUENZA VACCINE, A GE 6 MO - 64 YR, QUADRIVALENT (AFLURIA, FLULAVAL, FLUZONE) Destinee Older TEA BLENDER.SLIP COVER SEWER Work Phone: Start: 09-29-2023 [employer] COVI D-19 VACCINE (2022- SEASON) AGE 12+ YR Destinee Older TEA BLENDER.SLIP COVER SEWER Work Phone: Start: 09-18-2021 Drug test prsmv read direct optical obs pr date Ana Laura Boroff OIL WELL LOGGING ENGINEER Work Phone: Start: 09-18-2021 Most recent diastoli c blood pressure 80-89 mm hg Ana Laura Boroff OIL WELL LOGGING ENGINEER Work Phone: Start: 09-18-2021 Most recent systolic blood press 130-139mm hg Ana Laura Boroff OIL WELL LOGGING ENGINEER Work Phone: Start: 09-18-2021 Psychotherapy w/merlin ent 30 minutes Jeanne RODRIGUEZ Work Phone: Start: 09-08-2021 Drug test prsmv read direct optical obs pr date Ana Laura Boroff OIL WELL LOGGING ENGINEER Work Phone: Start: 09-08-2021 Most recent diastoli c blood pressure < 80 mm hg Ana Laura Boroff OIL WELL LOGGING ENGINEER Work Phone: Start: 09-08-2021 Most recent systolic blood pressure <130 mm hg Ana Laura Boroff OIL WELL LOGGING ENGINEER Work Phone: Start: 09-08-2021 Psychotherapy w/merlin ent 30 minutes Jeanne Quoc DENTAL TECHNICIAN APPRENTICE Work Phone: Start: 09-01-2021 Drug test prsmv read direct optical obs pr date Ana Laura Boroff OIL WELL LOGGING ENGINEER Work Phone: Start: 09-01-2021 Most recent diastoli c blood pressure < 80 mm hg Ana Laura Boroff OIL WELL LOGGING ENGINEER Work Phone: Start: 09-01-2021 Most recent systolic blood pressure <130 mm hg Ana Laura Boroff OIL WELL LOGGING ENGINEER Work Phone: Start: 09-01-2021 Psychotherapy w/merlin ent 30 minutes Carlene Jenkins DENTAL TECHNICIAN APPRENTICE Work Phone: Start: 08-27-2021 Antibody screen Start: 08-27-2021 Most recent diastoli c blood pressure 80-89 mm hg Ana Laura Boroff OIL WELL LOGGING ENGINEER Work Phone: Start: 08-27-2021 Most recent systolic blood press 130-139mm hg Ana Laura Boroff OIL WELL LOGGING ENGINEER Work Phone: Start: 08-27-2021 Psychotherapy w/merlin ent 30 minutes Carlene Jenkins DENTAL TECHNICIAN APPRENTICE Work Phone: Start: 08-27-2021 Comprehensive metabo lic panel Ana Laura Boroff Work Phone: Start: 08-27-2021 Drug test prsmv read direct optical obs pr date Ana Laura Boroff OIL WELL LOGGING ENGINEER Work Phone: Start: 08-27-2021 T. PALLIDUM AB Ana Laura harrison Work Phone: Start: 08-27-2021 Lipid 1996 panel - S sarah or Plasma Destinee Older TEA BLENDER.SLIP COVER SEWER Work Phone: Start: 12-05-2020 Anion gap [Moles/Vol] K christina Dowling Work Phone: Start: 12-05-2020 Comprehensive metabo lic panel Riya Dowling Work Phone: Start: 12-05-2020 GLOMERULAR FILTRATIO N RATE, ESTIMATED Riyaamira Dowling Work Phone: Start: 12-05-2020 Hepatitis c antibody Santos Rogers Fromberg Work Phone: Plan of Treatment Date Care Activity Detail Author Start: 10-21-2033 Urine microalbumin profile DTaP,Tdap,Td Vaccine (2 - Td or Tdap) [facility] Start: 08-27-2026 Lipid 1996 panel - S sarah or Plasma Lipid Screening [facility] Start: 08-27-2026 Lipid panel Lipid Screening [facility] Start: 08-27-2026 LIPID SCREEN LIPID SCREEN [facility] Start: 01-09-2025 Diabetes Screening Diabetes Screenin g [facility] Start: 12-29-2024 Annual PCP Team Panel Gluer ellie Disease Visit Annual PCP Team Chronic Disease Visit [facility] Start: 09-29-2024 Annual PCP Team Panel Gluer ellie Disease Visit Annual PCP Team Chronic Disease Visit [facility] Start: 09-29-2023 End: 12-29-2023 CBC W Auto Differential panel - Blood CBC + DIFF Lab Routine History of hepatitis C Expected: 09/29/2023, Expires: 12/29/2023 [facility] Work Phone: Immunizations Immunization Date Immunization Notes Care Provider Fa cili 10-21-2023 tetanus toxoid, reduced diphtheria toxoid, and acellular pertussis vaccine, adsorbed Jerzy Zuniga MD Work Phone: [facility] 09-29-2023 COVID-19 vaccine, ag e 12+ yr, season ([facility] [place]) Destinee Older TEA BLENDER.SLIP COVER SEWER Work Phone: [facility] 09-29-2023 influenza, injectabl e, quadrivalent, contains preservative Destinee Older TEA BLENDER.SLIP COVER SEWER Work Phone: [facility] 08-22-2022 influenza, injectabl e, quadrivalent, preservative free Josiah Pratt MD Work Phone: [facility] Work Phone: 04-09-2022 pneumococcal Conjugate, unspecified formulation Josiah Pratt MD Work Phone: [facility] Work Phone: 04-09-2022 pneumococcal (PCV20) vaccine, 20 valent (PREVNAR 20) Josiah Pratt MD Work Phone: [facility] Work Phone: 11-28-2021 COVID-19 vaccine, ag e 12+ yr ([employer] [facility]) Josiah Pratt MD Work Phone: [facility] Work Phone: 09-08-2021 hepatitis A vaccine, pediatric/adolescent dosage, 2 dose schedule; Translations: [Havrix] Ana Laura Thao [facility] Work Phone: [facility] Work Phone: 09-08-2021 hepatitis B vaccine, unspecified formulation; Translations: [energix] Ana Larua Thao [facility] Work Phone: [facility] Work Phone: Payers Date Payer Category Payer Medicaid [place] [employer] [place] [employer] [id number] 2021-[facility] [phone] [address] [place] [address] Medicaid [id number] 2021 Medicaid [id number] 2021 Private Health Insurance [id number] 2020 Unknown [id number] 1977 Unknown [id number] 1977 Unknown [id number] 1977 Unknown [id number] 1977 Unknown [id number] Social History Date Type Detail Facility Start: 12-05-2020 End: 09-29-2023 Tobacco smoking status NHIS Current every day smoker [facility] Work Phone: History of tobacco use Cigarette Smoker [place], [place] Start: 12-05-2020 End: 06-29-2023 Cigarettes smoked current (pack per day) - Reported [facility] Work Phone: Start: 12-05-2020 End: 09-29-2023 Tobacco use and exposure Never used [employer] Start: 12-05-2020 End: 12-29-2023 Alcohol intake Ex-drinker (finding) [id number] Start: 1975 Sex Assigned At Not on file [facility] [id number] Start: 03-30-2022 End: 07-13-2022 Exposure to SARS-CoV-2 (event) Not sure [facility] Work Phone: Assertion Problem situatio n relating to social and personal history (finding) [facility] Work Phone: Assertion Stress (finding) [facility] Work Phone: Assertion Misuse of prescr iption only drugs (finding) [facility] Work Phone: Assertion Opiate misuse (finding) [facility] Work Phone: Assertion Single person (finding) [facility] Work Phone: Assertion [facility] Work Phone: Assertion Smoker (finding) [facility] Work Phone: Assertion Moderate cigaret te smoker (10-19 cigs/day) (finding) [facility] Work Phone: Assertion Exposure to poll ution (event) [facility] Work Phone: Assertion Gender identity finding (finding) [facility] Work Phone: Assertion Heavy cigarette smoker (20-39 cigs/day) (finding) [facility] Work Phone: Assertion Finding of sexua l orientation (finding) [facility] Work Phone: Tobacco smoking status Unknown if ever sm oked [facility] Work Phone: Assertion Full-time employ ment (finding) [facility] Work Phone: Start: 11-28-2021 History SDOH Alcohol Frequency 1 [facility] Start: 11-28-2021 History SDOH Alcohol Comment recovering [facility] Start: 11-28-2021 End: 06-29-2023 Alcohol Use Disorder Identification Test - Consumption [AUDIT-C] [facility] Work Phone: How often to you hav e a drink containing alcohol? Never [facility] [facility] Work Phone: NEGATED: Highlighted row Assertion No conviction for driving while intoxicated [facility] Work Phone: NEGATED: Highlighted row Assertion Criminal behavior (finding) [facility] Work Phone: NEGATED: Highlighted row Assertion Legal problem (finding) [facility] Work Phone: NEGATED: Highlighted row Assertion Current drinker of alcohol (finding) [facility] Work Phone: NEGATED: Highlighted row Assertion Finding relating to drug misuse behavior (finding) [facility] Work Phone: Mental Status Date Assessment Result Facility Cognitive function Oriented to t moises, place, and person Oriented to person, time and place (finding) [facility] Work Phone: Clinical Notes 05-30-2021 to 12-29-2023 Patient InstructionsJosiah Pratt MD - 12/29/2023 8:59 AM Jerzy Rosales MD - 10/21/2023 3:54 PM Destinee Burkett, TEA BLENDER.SLIP COVER SEWER - 09/29/2023 6:18 PM EST Note Date & Type Note Facility 12-29-2023 Note HNO ID: [id number] Author: JOSIAH PRATT MD Service: ? Author Type: Physician Type: Progress Notes Filed: 12/29/2023 09:44 Note Text: This note was created using vivioriter. Subjective Carlota Putnam is a 48 year old male here for erratic follow up. He had no transportation so he missed his treatment for opioid dependence. He was out of his mental health medications. He had an intake at [facility] next week for services. He had good results from Zyprexa in the past and requested a short term prescription. He mainly needed refills of his asthma medications. Review of Systems Constitutional: Negative for chills, fever and unexpected weight change. HENT: Negative. Respiratory: Positive for cough and wheezing. Negative for shortness of breath. Cardiovascular: Negative. Gastrointestinal: Negative. ACTIVE PROBLEM LIST Asthma Hepatitis C Antibody Test Positive Tobacco Use Disorder History of Illicit Drug Use Depressive Disorder Mixed Anxiety Depressive Disorder Rib Pain On Left Side Heroin Addiction (Hcc) Social History Tobacco Use Smoking status: Every Day Packs/day: 1.00 Years: 20.00 Additional pack years: 0.00 Total pack years: 20.00 Types: Cigarettes Smokeless tobacco: Never Vaping Use Vaping Use: Never used Substance Use Topics Alcohol use: Not Currently Comment: recovering Drug use: Not Currently Frequency: 2.0 times per week Types: Opiates, IV, Heroin, Cocaine, Narcotics Comment: off and on Current Outpatient Medications Medication Sig OLANZapine (ZYPREXA) 5 mg tablet Take 1 tablet by mouth daily at bedtime. montelukast (SINGULAIR) 10 mg tablet Take 1 tablet by mouth daily at bedtime. albuterol HFA (PROVENTIL HFA, VENTOLIN HFA) 90 mcg/actuation inhaler Inhale 2 Puffs as instructed every 4 hours as needed for wheezing/shortness of breath. budesonide-formoterol (SYMBICORT) 160-4.5 mcg/actuation inhaler Inhale 2 Puffs as instructed two times a day. No current facility-administered medications for this visit. Objective BP 136/84 (BP Site: Left Arm, BP Position: Sitting, BP Cuff Size: Large Adult) Pulse 91 Temp 36.7 ?C (98.1 ?F) (Temporal) Resp 18 Wt 80.7 kg (178 lb) BMI 126.16 kg/m? Physical Exam Constitutional: General: He is not in acute distress. Appearance: He is not ill-appearing. HENT: Head: Normocephalic. Cardiovascular: Rate and Rhythm: Normal rate and regular rhythm. Heart sounds: No murmur heard. No gallop. Pulmonary: Effort: No respiratory distress. Breath sounds: Wheezing present. No rales. Neurological: General: No focal deficit present. Mental Status: He is alert. Psychiatric: Mood and Affect: Mood normal. Behavior: Behavior normal. Thought Content: Thought content normal. Comments: Unkempt. Assessment and Plan 1. Mixed anxiety depressive disorder - ICD9: 300.4, ICD10: F41.8 (primary diagnosis) - OLANZAPINE 5 MG TABLET. We agreed this is one time prescription, and this will be continued by his new mental health provider. 2. Depressive disorder - ICD9: 311, ICD10: F32.A - OLANZAPINE 5 MG TABLET 3. Moderate persistent asthma without complication - ICD9: 493.90, ICD10: J45.40 - MONTELUKAST 10 MG TABLET - ALBUTEROL SULFATE HFA 90 MCG/ACTUATION AEROSOL INHALER - BUDESONIDE-FORMOTEROL HFA 160 MCG-4.5 MCG/ACTUATION AEROSOL INHALER 4. Screening for colon cancer - ICD9: V76.51, ICD10: Z12.11 - FECAL OCCULT BLOOD TEST 5. Homelessness - ICD9: V60.0, ICD10: Z59.00 - He has intake at [facility]. I expect he will be hooked up with support services. He will call here if more assistance is needed. Josiah Pratt MD [facility] 12-29-2023 Instructions Josiah Pratt MD - 12/29/2023 9:11 AM EST DO LABS TODAY. documented in this encounter [facility] 12-29-2023 History of Presen t illness Narrative This note was created using Yunait. Subjective Carlota Putnam is a 48 year old male here for erratic follow up. He had no transportation so he missed his treatment for opioid dependence. He was out of his mental health medications. He had an intake at [facility] next week for services. He had good results from Zyprexa in the past and requested a short term prescription. He mainly needed refills of his asthma medications. Review of Systems Constitutional: Negative for chills, fever and unexpected weight change. HENT: Negative. Respiratory: Positive for cough and wheezing. Negative for shortness of breath. Cardiovascular: Negative. Gastrointestinal: Negative. ACTIVE PROBLEM LIST Asthma Hepatitis C Antibody Test Positive Tobacco Use Disorder History of Illicit Drug Use Depressive Disorder Mixed Anxiety Depressive Disorder Rib Pain On Left Side Heroin Addiction (Hcc) Social History Tobacco Use Smoking status: Every Day Packs/day: 1.00 Years: 20.00 Additional pack years: 0.00 Total pack years: 20.00 Types: Cigarettes Smokeless tobacco: Never Vaping Use Vaping Use: Never used Substance Use Topics Alcohol use: Not Currently Comment: recovering Drug use: Not Currently Frequency: 2.0 times per week Types: Opiates, IV, Heroin, Cocaine, Narcotics Comment: off and on Current Outpatient Medications Medication Sig OLANZapine (ZYPREXA) 5 mg tablet Take 1 tablet by mouth daily at bedtime. montelukast (SINGULAIR) 10 mg tablet Take 1 tablet by mouth daily at bedtime. albuterol HFA (PROVENTIL HFA, VENTOLIN HFA) 90 mcg/actuation inhaler Inhale 2 Puffs as instructed every 4 hours as needed for wheezing/shortness of breath. budesonide-formoterol (SYMBICORT) 160-4.5 mcg/actuation inhaler Inhale 2 Puffs as instructed two times a day. No current facility-administered medications for this visit. Objective BP 136/84 (BP Site: Left Arm, BP Position: Sitting, BP Cuff Size: Large Adult) Pulse 91 Temp 36.7 C (98.1 F) (Temporal) Resp 18 Wt 80.7 kg (178 lb) BMI 126.16 kg/m Physical Exam Constitutional: General: He is not in acute distress. Appearance: He is not ill-appearing. HENT: Head: Normocephalic. Cardiovascular: Rate and Rhythm: Normal rate and regular rhythm. Heart sounds: No murmur heard. No gallop. Pulmonary: Effort: No respiratory distress. Breath sounds: Wheezing present. No rales. Neurological: General: No focal deficit present. Mental Status: He is alert. Psychiatric: Mood and Affect: Mood normal. Behavior: Behavior normal. Thought Content: Thought content normal. Comments: Unkempt. Assessment and Plan 1. Mixed anxiety depressive disorder - ICD9: 300.4, ICD10: F41.8 (primary diagnosis) - OLANZAPINE 5 MG TABLET. We agreed this is one time prescription, and this will be continued by his new mental health provider. 2. Depressive disorder - ICD9: 311, ICD10: F32.A - OLANZAPINE 5 MG TABLET 3. Moderate persistent asthma without complication - ICD9: 493.90, ICD10: J45.40 - MONTELUKAST 10 MG TABLET - ALBUTEROL SULFATE HFA 90 MCG/ACTUATION AEROSOL INHALER - BUDESONIDE-FORMOTEROL HFA 160 MCG-4.5 MCG/ACTUATION AEROSOL INHALER 4. Screening for colon cancer - ICD9: V76.51, ICD10: Z12.11 - FECAL OCCULT BLOOD TEST 5. Homelessness - ICD9: V60.0, ICD10: Z59.00 - He has intake at [facility]. I expect he will be hooked up with support services. He will call here if more assistance is needed. Josiah Pratt MD documented in this encounter [facility] 10-21-2023 Note HNO ID: [id number] Author: Jerzy Zuniga MD Service: ? Author Type: Physician Type: Progress Notes Filed: 10/21/2023 5:24 PM Note Text: Patient presents with: cut on eyebrow: Hit with a shovel 1/2 hour ago HPI: Hit by the right eyebrow this afternoon with a shovel that bounced back at his face while helping someone. Denies headache, dizziness, vision change, nausea, weakness, or numbness. Last tetanus vaccine was over 10 years ago. PAST MEDICAL HISTORY Diagnosis Date Asthma Depressive disorder 08/27/2021 Hepatitis C antibody test positive 04/09/2022 Hepatitis C virus infection 11/28/2021 History of illicit drug use 05/30/2021 Immunity to hepatitis B virus demonstrated by serologic test 01/09/2022 Mixed anxiety depressive disorder 08/27/2021 Osteomyelitis (HCC) 05/30/2021 left rib Rib pain on left side 11/28/2021 Tobacco use disorder 05/30/2021 Uncomplicated opioid dependence (HCC) 02/05/2021 MEDICATIONS: benztropine (COGENTIN) 1 mg tablet Take 1 mg by mouth once daily. buPROPion XL (WELLBUTRIN XL) 300 mg 24 hr tablet Take 1 tablet by mouth every afternoon. buPROPion XL (WELLBUTRIN XL) 150 mg 24 hr tablet Take 150 mg by mouth once daily. haloperidol (HALDOL) 5 mg tablet Take 5 mg by mouth four times daily. montelukast (SINGULAIR) 10 mg tablet Take 1 tablet by mouth daily at bedtime. albuterol HFA (PROVENTIL HFA, VENTOLIN HFA) 90 mcg/actuation inhaler Inhale 2 Puffs as instructed every 4 hours as needed for wheezing/shortness of breath. budesonide-formoterol (SYMBICORT) 160-4.5 mcg/actuation inhaler Inhale 2 Puffs as instructed two times a day. naproxen (NAPROSYN) 500 mg tablet Take 1 tablet by mouth three times a day as needed (for pain/inflammation). Take with food. ALLERGIES: ALLERGIES No Known Allergies VITALS: BP 144/84 Pulse 101 Temp 36.3 ?C (97.3 ?F) (Tympanic) Resp 16 Wt 80.6 kg (177 lb 12.8 oz) SpO2 96% BMI 126.02 kg/m? PHYSICAL EXAM: GEN: no acute distress, alert HEENT: PERRL, EOMI, MMM 1cm laceration below the lateral right eyebrow with underlying edema. NECK: supple, no lymphadenopathy, no thyromegaly HEART: regular rate, regular rhythm, no murmurs LUNGS: clear to auscultation, no wheezes or crackles, no increased WOB EXT: no clubbing, no cyanosis, no edema NEURO: Alert and oriented to person, place, and time. CN II-XII intact. DTR 2+/4. Normal strength. Normal gait. No tremor. Procedure: Site cleansed with hibiclens and water on gauze. Good approximation achieved with 2 layers of exofin skin adhesive. Hemostasis achieved with wound closure. ASSESSMENT/PLAN: 1. Laceration of right eyebrow, initial encounter - ICD9: 873.42, ICD10: S01.111A (primary diagnosis) Wound closed with skin adhesive. Wound care instructions reviewed. - TDAP VACCINE, AGE 7+ YR (ADACEL, BOOSTRIX) Given acetaminophen for tenderness at the wound site. 2. Injury of head, initial encounter - ICD9: 959.01, ICD10: S09.90XA Seek ER evaluation for worsening headache, worsening dizziness, worsening nausea, vision change, numbness, weakness, or speech difficulty. Jerzy Zuniga MD [facility] 10-21-2023 History of Presen t illness Narrative Patient presents with: cut on eyebrow: Hit with a shovel 1/2 hour ago HPI: Hit by the right eyebrow this afternoon with a shovel that bounced back at his face while helping someone. Denies headache, dizziness, vision change, nausea, weakness, or numbness. Last tetanus vaccine was over 10 years ago. PAST MEDICAL HISTORY Diagnosis Date Asthma Depressive disorder 08/27/2021 Hepatitis C antibody test positive 04/09/2022 Hepatitis C virus infection 11/28/2021 History of illicit drug use 05/30/2021 Immunity to hepatitis B virus demonstrated by serologic test 01/09/2022 Mixed anxiety depressive disorder 08/27/2021 Osteomyelitis (HCC) 05/30/2021 left rib Rib pain on left side 11/28/2021 Tobacco use disorder 05/30/2021 Uncomplicated opioid dependence (HCC) 02/05/2021 MEDICATIONS: benztropine (COGENTIN) 1 mg tablet Take 1 mg by mouth once daily. buPROPion XL (WELLBUTRIN XL) 300 mg 24 hr tablet Take 1 tablet by mouth every afternoon. buPROPion XL (WELLBUTRIN XL) 150 mg 24 hr tablet Take 150 mg by mouth once daily. haloperidol (HALDOL) 5 mg tablet Take 5 mg by mouth four times daily. montelukast (SINGULAIR) 10 mg tablet Take 1 tablet by mouth daily at bedtime. albuterol HFA (PROVENTIL HFA, VENTOLIN HFA) 90 mcg/actuation inhaler Inhale 2 Puffs as instructed every 4 hours as needed for wheezing/shortness of breath. budesonide-formoterol (SYMBICORT) 160-4.5 mcg/actuation inhaler Inhale 2 Puffs as instructed two times a day. naproxen (NAPROSYN) 500 mg tablet Take 1 tablet by mouth three times a day as needed (for pain/inflammation). Take with food. ALLERGIES: ALLERGIES No Known Allergies VITALS: BP 144/84 Pulse 101 Temp 36.3 C (97.3 F) (Tympanic) Resp 16 Wt 80.6 kg (177 lb 12.8 oz) SpO2 96% BMI 126.02 kg/m PHYSICAL EXAM: GEN: no acute distress, alert HEENT: PERRL, EOMI, MMM 1cm laceration below the lateral right eyebrow with underlying edema. NECK: supple, no lymphadenopathy, no thyromegaly HEART: regular rate, regular rhythm, no murmurs LUNGS: clear to auscultation, no wheezes or crackles, no increased WOB EXT: no clubbing, no cyanosis, no edema NEURO: Alert and oriented to person, place, and time. CN II-XII intact. DTR 2+/4. Normal strength. Normal gait. No tremor. Procedure: Site cleansed with hibiclens and water on gauze. Good approximation achieved with 2 layers of exofin skin adhesive. Hemostasis achieved with wound closure. ASSESSMENT/PLAN: 1. Laceration of right eyebrow, initial encounter - ICD9: 873.42, ICD10: S01.111A (primary diagnosis) Wound closed with skin adhesive. Wound care instructions reviewed. - TDAP VACCINE, AGE 7+ YR (ADACEL, BOOSTRIX) Given acetaminophen for tenderness at the wound site. 2. Injury of head, initial encounter - ICD9: 959.01, ICD10: S09.90XA Seek ER evaluation for worsening headache, worsening dizziness, worsening nausea, vision change, numbness, weakness, or speech difficulty. Jerzy Zuniga MD documented in this encounter [facility] 09-29-2023 Note HNO ID: [id number] Author: Destinee Cobos APRN.SLIP COVER SEWER Service: ? Author Type: Nurse Practitioner Type: Progress Notes Filed: 09/29/2023 7:03 PM Note Text: CC: Patient presents with: Physical: Right middle finger pain - cut one week ago HPI Carlota Putnam is a 47 year old male who presents today for above. He established care here last year, follow-up is sporadic and has not been seen in over on year. Right middle finger- injured about one week ago. He is unsure how he injured it, thinks maybe when he was jacking up a car to work on it. There is a cut on the knuckle along with significant pain and swelling, unable to bend the finger. Taking ibuprofen daily without any relief. Index finger is also swollen and painful but not as bad. Heroin addiction- outpatient treatment at [facility] in [place], currently on Sublocade. Schizophrenia- also treated at [facility] with Cogentin, Wellbutrin and Haldol. Chronic rib pain secondary to left anterior rib resection for osteomyelitis in 2020. Requesting refill on Gabapentin, last prescribed by [facility] in [place], [place]. History of hepatitis C- completed treatment but unclear when. States he never had repeat labs to confirm clearing of Hep C. Asthma-Symptoms: chest tightness and shortness of breath. Nocturnal Symptoms: YES nightly. Asthma is not limiting daily activities or exercise. Current pulmonary medications are Symbicort but he has been out of it for months. Frequency of albuterol use is 1-2 times a day. Recent exacerbations, ED visits or hospitalizations in the past year: No Review of Systems Constitutional: Positive for fatigue. Negative for chills, diaphoresis, fever and unexpected weight change. Respiratory: Chronic cough and wheezing secondary to asthma and smoking Cardiovascular: Positive for leg swelling (chronic, no worsening). Negative for chest pain and palpitations. Gastrointestinal: Negative for abdominal pain, blood in stool, constipation, diarrhea, nausea and vomiting. Skin: Negative for color change and rash. Psychiatric/Behavioral: Positive for sleep disturbance. Negative for self-injury and suicidal ideas. The patient is nervous/anxious. PAST MEDICAL HISTORY Diagnosis Date Asthma Depressive disorder 08/27/2021 Hepatitis C antibody test positive 04/09/2022 Hepatitis C virus infection 11/28/2021 History of illicit drug use 05/30/2021 Immunity to hepatitis B virus demonstrated by serologic test 01/09/2022 Mixed anxiety depressive disorder 08/27/2021 Osteomyelitis (HCC) 05/30/2021 left rib Rib pain on left side 11/28/2021 Tobacco use disorder 05/30/2021 Uncomplicated opioid dependence (HCC) 02/05/2021 PAST SURGICAL HISTORY Procedure Laterality Date CHEST WALL RESECTION OF TUMOR AND/OR RIBS Left 05/2021 Osteomyelitis rib, chest wall ALLERGIES Patient has no known allergies. MEDICATIONS benztropine (COGENTIN) 1 mg tablet Take 1 mg by mouth once daily. buPROPion XL (WELLBUTRIN XL) 300 mg 24 hr tablet Take 1 tablet by mouth every afternoon. buPROPion XL (WELLBUTRIN XL) 150 mg 24 hr tablet Take 150 mg by mouth once daily. haloperidol (HALDOL) 5 mg tablet Take 5 mg by mouth four times daily. montelukast (SINGULAIR) 10 mg tablet Take 1 tablet by mouth daily at bedtime. albuterol HFA (PROVENTIL HFA, VENTOLIN HFA) 90 mcg/actuation inhaler Inhale 2 Puffs as instructed every 4 hours as needed for wheezing/shortness of breath. budesonide-formoterol (SYMBICORT) 160-4.5 mcg/actuation inhaler Inhale 2 Puffs as instructed two times a day. naproxen (NAPROSYN) 500 mg tablet Take 1 tablet by mouth three times a day as needed (for pain/inflammation). Take with food. buprenorphine ER (SUBLOCADE) 300 mg/1.5 mL injection Inject 1.5 mL subcutaneously one time only for 1 dose. FAMILY HISTORY Problem Relation Age of Onset Diabetes Mother Diabetes Father Social History Tobacco Use Smoking status: Every Day Packs/day: 1.00 Years: 20.00 Additional pack years: 0.00 Total pack years: 20.00 Types: Cigarettes Smokeless tobacco: Never Vaping Use Vaping Use: Never used Substance Use Topics Alcohol use: Not Currently Comment: recovering Drug use: Not Currently Frequency: 2.0 times per week Types: Opiates, IV, Heroin, Cocaine, Narcotics BP 130/88 Pulse 78 Resp 18 Ht 80 cm (2' 7.5 ) Wt 78.9 kg (174 lb) SpO2 96% BMI 123.32 kg/m? Physical Exam Vitals reviewed. Constitutional: Appearance: He is not ill-appearing or toxic-appearing. Eyes: Conjunctiva/sclera: Conjunctivae normal. Neck: Thyroid: No thyroid mass, thyromegaly or thyroid tenderness. Cardiovascular: Rate and Rhythm: Normal rate and regular rhythm. Pulses: Normal pulses. Heart sounds: Normal heart sounds. No murmur heard. Pulmonary: Effort: Pulmonary effort is normal. Breath sounds: Decreased breath sounds and wheezing present. No rhonchi. Abdominal: General: Ab (more content not included)... [facility] 09-29-2023 History of Presen t illness Narrative CC: Patient presents with: Physical: Right middle finger pain - cut one week ago HPI Carlota Putnam is a 47 year old male who presents today for above. He established care here last year, follow-up is sporadic and has not been seen in over on year. Right middle finger- injured about one week ago. He is unsure how he injured it, thinks maybe when he was jacking up a car to work on it. There is a cut on the knuckle along with significant pain and swelling, unable to bend the finger. Taking ibuprofen daily without any relief. Index finger is also swollen and painful but not as bad. Heroin addiction- outpatient treatment at [facility] in [place], currently on Sublocade. Schizophrenia- also treated at [facility] with Cogentin, Wellbutrin and Haldol. Chronic rib pain secondary to left anterior rib resection for osteomyelitis in 2020. Requesting refill on Gabapentin, last prescribed by [facility] in [place], [place]. History of hepatitis C- completed treatment but unclear when. States he never had repeat labs to confirm clearing of Hep C. Asthma-Symptoms: chest tightness and shortness of breath. Nocturnal Symptoms: YES nightly. Asthma is not limiting daily activities or exercise. Current pulmonary medications are Symbicort but he has been out of it for months. Frequency of albuterol use is 1-2 times a day. Recent exacerbations, ED visits or hospitalizations in the past year: No Review of Systems Constitutional: Positive for fatigue. Negative for chills, diaphoresis, fever and unexpected weight change. Respiratory: Chronic cough and wheezing secondary to asthma and smoking Cardiovascular: Positive for leg swelling (chronic, no worsening). Negative for chest pain and palpitations. Gastrointestinal: Negative for abdominal pain, blood in stool, constipation, diarrhea, nausea and vomiting. Skin: Negative for color change and rash. Psychiatric/Behavioral: Positive for sleep disturbance. Negative for self-injury and suicidal ideas. The patient is nervous/anxious. PAST MEDICAL HISTORY Diagnosis Date Asthma Depressive disorder 08/27/2021 Hepatitis C antibody test positive 04/09/2022 Hepatitis C virus infection 11/28/2021 History of illicit drug use 05/30/2021 Immunity to hepatitis B virus demonstrated by serologic test 01/09/2022 Mixed anxiety depressive disorder 08/27/2021 Osteomyelitis (HCC) 05/30/2021 left rib Rib pain on left side 11/28/2021 Tobacco use disorder 05/30/2021 Uncomplicated opioid dependence (HCC) 02/05/2021 PAST SURGICAL HISTORY Procedure Laterality Date CHEST WALL RESECTION OF TUMOR &/OR RIBS Left 05/2021 Osteomyelitis rib, chest wall ALLERGIES Patient has no known allergies. MEDICATIONS benztropine (COGENTIN) 1 mg tablet Take 1 mg by mouth once daily. buPROPion XL (WELLBUTRIN XL) 300 mg 24 hr tablet Take 1 tablet by mouth every afternoon. buPROPion XL (WELLBUTRIN XL) 150 mg 24 hr tablet Take 150 mg by mouth once daily. haloperidol (HALDOL) 5 mg tablet Take 5 mg by mouth four times daily. montelukast (SINGULAIR) 10 mg tablet Take 1 tablet by mouth daily at bedtime. albuterol HFA (PROVENTIL HFA, VENTOLIN HFA) 90 mcg/actuation inhaler Inhale 2 Puffs as instructed every 4 hours as needed for wheezing/shortness of breath. budesonide-formoterol (SYMBICORT) 160-4.5 mcg/actuation inhaler Inhale 2 Puffs as instructed two times a day. naproxen (NAPROSYN) 500 mg tablet Take 1 tablet by mouth three times a day as needed (for pain/inflammation). Take with food. buprenorphine ER (SUBLOCADE) 300 mg/1.5 mL injection Inject 1.5 mL subcutaneously one time only for 1 dose. FAMILY HISTORY Problem Relation Age of Onset Diabetes Mother Diabetes Father Social History Tobacco Use Smoking status: Every Day Packs/day: 1.00 Years: 20.00 Additional pack years: 0.00 Total pack years: 20.00 Types: Cigarettes Smokeless tobacco: Never Vaping Use Vaping Use: Never used Substance Use Topics Alcohol use: Not Currently Comment: recovering Drug use: Not Currently Frequency: 2.0 times per week Types: Opiates, IV, Heroin, Cocaine, Narcotics BP 130/88 Pulse 78 Resp 18 Ht 80 cm (2' 7.5 ) Wt 78.9 kg (174 lb) SpO2 96% BMI 123.32 kg/m Physical Exam Vitals reviewed. Constitutional: Appearance: He is not ill-appearing or toxic-appearing. Eyes: Conjunctiva/sclera: Conjunctivae normal. Neck: Thyroid: No thyroid mass, thyromegaly or thyroid tenderness. Cardiovascular: Rate and Rhythm: Normal rate and regular rhythm. Pulses: Normal pulses. Heart sounds: Normal heart sounds. No murmur heard. Pulmonary: Effort: Pulmonary effort is normal. Breath sounds: Decreased breath sounds and wheezing present. No rhonchi. Abdominal: General: Abdomen is flat. Bowel sounds are normal. Palpations: Abdomen is soft. There is no hepatomegaly or splenomegaly. Tenderness: There is no abdominal tenderness. Musculoskeletal: Right hand: Normal capillary refill. Normal pulse. Left hand: Normal capillary refill. Normal pulse. Cervical back: Neck supple. Right lower le+ Pitting Edema present. Left lower le+ Pitting Edema present. Comments: Right middle finger, PIP joint: scab with surrounding erythema and swelling. Exquisite tenderness with palpation. Limited and painful ROM. Right index finger, PIP joint: swollen and tender with palpation but less so than middle finger. Limited and painful ROM Lymphadenopathy: Cervical: No cervical adenopathy. Skin: General: Skin is warm and dry. Psychiatric: Behavior: Behavior is cooperative. Health maintenance reviewed with patient: Spirometry Never done DTaP,Tdap,Td Vaccine(1 - Tdap) Never done Colorectal Cancer Screening Never done Annual PCP Team Chronic Disease Visit due on 04/09/2023 Influenza Vaccine(1) due on 07/16/2023 Covid-19 Vaccine( season) due on 07/16/2023 Diabetes Screening due on 01/09/2025 Lipid Screening due on 08/27/2026 Hepatitis C Screening Completed HIV Screening Completed Pneumococcal Vaccine Completed HPV Vaccine Aged Out DATA REVIEWED: Most recent labs ASSESSMENT/PLAN: 1. Pain in right finger(s) - ICD9: 729.5, ICD10: M79.644 (primary diagnosis) Differentials include fracture, cellulitis, septic joint - XR DIGIT GENERAL 3V FRONTAL/LAT/OBL RIGHT Further recommendations pending results 2. Moderate persistent asthma without complication - ICD9: 493.90, ICD10: J45.40 - Factors affecting control of asthma include activity induced and tobacco smoke - Continue current medications, refilled - Avoidance of triggers recommended - MONTELUKAST 10 MG TABLET - ALBUTEROL SULFATE HFA 90 MCG/ACTUATION AEROSOL INHALER - BUDESONIDE-FORMOTEROL HFA 160 MCG-4.5 MCG/ACTUATION AEROSOL INHALER 3. Mixed anxiety depressive disorder - ICD9: 300.4, ICD10: F41.8 Meds and follow-up per psychiatry 4. Injury of finger of right hand, initial encounter - ICD9: 959.5, ICD10: S69.91XA See #1 - XR DIGIT GENERAL 3V FRONTAL/LAT/OBL RIGHT - XR DIGIT GENERAL 3V FRONTAL/LAT/OBL RIGHT 5. History of hepatitis C - ICD9: V12.09, ICD10: Z86.19 Recheck - COMP METABOLIC PANEL - CBC + DIFF - HEP REMOTE PANEL BL 6. Heroin addiction (HCC) - ICD9: 304.00, ICD10: F11.20 Current treatment per addiction center in [place]. Follow-up as instructed 7. Schizophrenia, unspecified type (HCC) - ICD9: 295.90, ICD10: F20.9 Meds and follow-up per psychiatry 8. Encounter for immunization - ICD9: V03.89, ICD10: Z23 - INFLUENZA VACCINE, AGE 6 MO - 64 YR, QUADRIVALENT (AFLURIA, FLULAVAL, FLUZONE) - [employer] COVID-19 VACCINE ( SEASON) AGE 12+ YR Prescription instructions reviewed with patient as applicable. Potential red flag symptoms discussed with the patient. Reviewed appropriate action plan to take if red flag symptoms occur. Patient agreeable to treatment plan. Destinee Cobos APRN.CNP documented in this encounter [facility] 09-11-2022 Miscellaneous Notes Patient called to have pulmonary testing and consultation rescheduled due to transportation issues. I requested to call back the patient so I could search other facilities that could accommodate his testing at a sooner date than what was available in [place]. I LM on patient's VM offering him to be seen 10/20/22 and to call if this did not work for him. I have also placed the patient on the waitlist. documented in this encounter [facility] 07-10-2022 Miscellaneous Notes Called patient and left message for patient to call back and schedule a pulmonology appointment. Karly Roman RN Tried calling PT phone number does not work, fathers VM is full and not active on [employer] Thanks Malathi call pt to arrange consult. ASSESSMENT/PLAN: 1. Uncomplicated asthma, unspecified asthma severity, unspecified whether persistent - ICD9: 493.90, ICD10: J45.909 - CONSULT TO PULMONARY MEDICINE Josiah Pratt MD Patient calls and states that his insurance is saying that he needs a breathing test due to his asthma. Patient asking if provider can order this test or does patient have to see pulmonology? If so patient would need to be referred to pulmonology. Please review and advise, Karly Roman RN documented in this encounter [facility] 04-09-2022 History of Presen t illness Narrative This note was created using [employer]. Subjective Carlota Putnam is a 46 year old male. His edema resolved. His asthma was controlled. Anxiety and depression were stable. [facility] He had been on gabapentin in the past, and he requested a short term prescription for 2 weeks, until he was seen at [facility]. He was transitioned from [facility] to [facility] for addiction. He was not on any prescribed opioids at this time. Review of Systems Constitutional: Negative. Respiratory: Negative for cough, shortness of breath and wheezing. Cardiovascular: Negative. Gastrointestinal: Negative. Neurological: Negative. Psychiatric/Behavioral: Negative. ACTIVE PROBLEM LIST Asthma Hepatitis C Antibody Test Positive Tobacco Use Disorder History of Illicit Drug Use Depressive Disorder Mixed Anxiety Depressive Disorder Rib Pain On Left Side Heroin Addiction (Hcc) Current Outpatient Medications Medication Sig albuterol HFA (PROVENTIL HFA, VENTOLIN HFA) 90 mcg/actuation inhaler Inhale 2 Puffs as instructed every 4 hours as needed for wheezing/shortness of breath. montelukast (SINGULAIR) 10 mg tablet Take 1 tablet by mouth daily at bedtime. budesonide-formoterol (SYMBICORT) 160-4.5 mcg/actuation inhaler Inhale 2 Puffs as instructed twice daily. DULoxetine (CYMBALTA) 20 mg capsule Take 1 capsule by mouth once daily. No current facility-administered medications for this visit. Objective BP 136/76 (BP Site: Right Arm, BP Position: Sitting, BP Cuff Size: Large Adult) Pulse 80 Temp 36.9 C (98.4 F) (Temporal Artery) Resp 18 Wt 82.6 kg (182 lb) BMI (P) 26.11 kg/m Physical Exam Constitutional: General: He is not in acute distress. Appearance: He is not ill-appearing. Cardiovascular: Rate and Rhythm: Normal rate and regular rhythm. Heart sounds: No murmur heard. No gallop. Pulmonary: Breath sounds: No wheezing. Abdominal: Tenderness: There is no abdominal tenderness. Musculoskeletal: General: No tenderness. Right lower leg: No edema. Left lower leg: No edema. Neurological: General: No focal deficit present. Mental Status: He is alert. Gait: Gait normal. Psychiatric: Mood and Affect: Mood normal. Assessment and Plan 1. Rib pain on left side - ICD9: 786.50, ICD10: R07.81 (primary diagnosis) - DULOXETINE 20 MG CAPSULE,DELAYED RELEASE - GABAPENTIN 600 MG TABLET. TID x 2 weeks, per request. He might use BID dosing instead. He will request further refills from psychiatry. 2. Uncomplicated asthma, unspecified asthma severity, unspecified whether persistent - ICD9: 493.90, ICD10: J45.909 Stable. - ALBUTEROL SULFATE HFA 90 MCG/ACTUATION AEROSOL INHALER - MONTELUKAST 10 MG TABLET - BUDESONIDE-FORMOTEROL HFA 160 MCG-4.5 MCG/ACTUATION AEROSOL INHALER - PNEUMOCOCCAL VACCINE (PREVNAR 20) 3. Depressive disorder - ICD9: 311, ICD10: F32.A Stable. - DULOXETINE 20 MG CAPSULE,DELAYED RELEASE 4. Mixed anxiety depressive disorder - ICD9: 300.4, ICD10: F41.8 Stable. - DULOXETINE 20 MG CAPSULE,DELAYED RELEASE - GABAPENTIN 600 MG TABLET 5. Need for vaccination - ICD9: V05.9, ICD10: Z23 - PNEUMOCOCCAL VACCINE (PREVNAR 20) Josiah Pratt MD documented in this encounter [facility] Work Phone: [phone]) 253-760810-25-2021 Evaluation note Includes: Assessments for all patient encounters Findings Encounter Date [Z68.24 - Body mass index [B [place]] 24.0-24.9, adult] assessment of body mass index Medical Substance Abuse with Ana Laura DURAN 09/08/2021 Opioid abuse Medical Substance Ab use with Ana Laura REEDP 09/08/2021 Post-traumatic stress disorder Medical S ubstance Abuse with Ana Laura REEDP 09/08/2021 Opioid dependence BH Substance Abuse w ith Carlene RODRIGUEZ 09/01/2021 Post-traumatic stress disorder BH Substa nce Abuse with Carlene RODRIGUEZ 09/01/2021 Assessment of body mass index Medical [place] bstance Abuse with Ana Laura Boroff [employer] 09/01/2021 Depression BH Substance Abuse w [facility] Carlene Gregory DENTAL TECHNICIAN APPRENTICE 08/27/2021 Nicotine dependence BH Substance Abuse w ith Carlene Gregory DENTAL TECHNICIAN APPRENTICE 08/27/2021 Opioid dependence BH Substance Abuse w [facility] Carlene Gregory DENTAL TECHNICIAN APPRENTICE 08/27/2021 Post-traumatic stress disorder BH Substa nce Abuse with Carlene Jenkins DENTAL TECHNICIAN APPRENTICE 08/27/2021 [F11.10 - Opioid abuse, unco mplicated] opioid abuse Medical Substance Abuse with Ana Laura Boroff [employer] 08/27/2021 [F43.10 - Post-traumatic str ess disorder, unspecified] post-traumatic stress disorder Medical Substance Abuse with Ana Laura Boroff [employer] 08/27/2021 [J45.30 - Mild persistent as thma, uncomplicated] asthma Medical Substance Abuse with Ana Laura Boroff [employer] 08/27/2021 [Z00.00 - Encounter for [facility] adult medical examination without abnormal findings] routine adult history and physical (18-64 yrs) without abnormal findings Medical Substance Abuse with Ana Laura Boroff [employer] 08/27/2021 [Z68.23 - Body mass index [B [place]] 23.0-23.9, adult] assessment of body mass index Medical Substance Abuse with Ana Laura Boroff [employer] 08/27/2021 Diabetes Risk Test Score was two score 08/27/2021 Medical Substance Abuse with Ana Laura Boroff [employer] 08/27/2021 [facility] Work Phone: [phone]) 568-162910-25-2021 Evaluation note Includes: Assessments for all patient encounters Findings Encounter Date Opioid dependence BH Substance Abuse w [facility] Jeanne Quoc DENTAL TECHNICIAN APPRENTICE 09/08/2021 Opioid dependence, on agonist therapy BH Substance Abuse with Jeannerefugio Kumari DENTAL TECHNICIAN APPRENTICE 09/08/2021 [Z68.24 - Body mass index [B [place]] 24.0-24.9, adult] assessment of body mass index Medical Substance Abuse with Ana Laura Boroff [employer] 09/08/2021 Opioid abuse Medical Substance Ab use with Ana Laura Boroff [employer] 09/08/2021 Post-traumatic stress disorder Medical S ubstance Abuse with Ana Laura Boroff [employer] 09/08/2021 Opioid dependence BH Substance Abuse w [facility] Carlene Gregory DENTAL TECHNICIAN APPRENTICE 09/01/2021 Post-traumatic stress disorder BH Substa nce Abuse with Carlene Jenkins DENTAL TECHNICIAN APPRENTICE 09/01/2021 Assessment of body mass index Medical [place] bstance Abuse with Ana Laura Boroff [employer] 09/01/2021 Depression BH Substance Abuse w ith Carlene Jenkins DENTAL TECHNICIAN APPRENTICE 08/27/2021 Nicotine dependence BH Substance Abuse w ith Carlene Gregory DENTAL TECHNICIAN APPRENTICE 08/27/2021 Opioid dependence BH Substance Abuse w ith Carlene Gregory DENTAL TECHNICIAN APPRENTICE 08/27/2021 Post-traumatic stress disorder BH Substa nce Abuse with Carlenecandelario Jenkins DENTAL TECHNICIAN APPRENTICE 08/27/2021 [F11.10 - Opioid abuse, unco mplicated] opioid abuse Medical Substance Abuse with Ana Laura Boroff [employer] 08/27/2021 [F43.10 - Post-traumatic str ess disorder, unspecified] post-traumatic stress disorder Medical Substance Abuse with Ana Laura Boroff [employer] 08/27/2021 [J45.30 - Mild persistent as thma, uncomplicated] asthma Medical Substance Abuse with Ana Laura Boroff [employer] 08/27/2021 [Z00.00 - Encounter for [facility] adult medical examination without abnormal findings] routine adult history and physical (18-64 yrs) without abnormal findings Medical Substance Abuse with Ana Laura Boroff [employer] 08/27/2021 [Z68.23 - Body mass index [B [place]] 23.0-23.9, adult] assessment of body mass index Medical Substance Abuse with Ana Laura Boroff [employer] 08/27/2021 Diabetes Risk Test Score was two score 08/27/2021 Medical Substance Abuse with Ana Laura Boroff [facility] 08/27/2021 [facility] Work Phone: [phone]) 831-856310-25-2021 Evaluation note Includes: Assessments for all patient encounters Findings Encounter Date [Z68.23 - Body mass index [B [place]] 23.0-23.9, adult] assessment of body mass index Medical Substance Abuse with Ana Laura Boroff [employer] 09/18/2021 Opioid dependence BH Substance Abuse w ith Jeanne Kumari DENTAL TECHNICIAN APPRENTICE 09/08/2021 Opioid dependence, on agonist therapy BH Substance Abuse with Jeanne Kumari DENTAL TECHNICIAN APPRENTICE 09/08/2021 [Z68.24 - Body mass index [B [place]] 24.0-24.9, adult] assessment of body mass index Medical Substance Abuse with Ana Laura Boroff [employer] 09/08/2021 Opioid abuse Medical Substance Ab use with Ana Laura Boroff [employer] 09/08/2021 Post-traumatic stress disorder Medical S ubstance Abuse with Ana Laura Boroff [employer] 09/08/2021 Opioid dependence BH Substance Abuse w ith Carlene Jenkins DENTAL TECHNICIAN APPRENTICE 09/01/2021 Post-traumatic stress disorder BH Substa nce Abuse with Carlene Jenkins DENTAL TECHNICIAN APPRENTICE 09/01/2021 Assessment of body mass index Medical [place] bstance Abuse with Ana Laura Boroff [employer] 09/01/2021 Depression BH Substance Abuse w ith Carlene Jenkins DENTAL TECHNICIAN APPRENTICE 08/27/2021 Nicotine dependence BH Substance Abuse w ith Carlene Jenkins DENTAL TECHNICIAN APPRENTICE 08/27/2021 Opioid dependence BH Substance Abuse w ith Carlene Jenkins DENTAL TECHNICIAN APPRENTICE 08/27/2021 Post-traumatic stress disorder BH Substa nce Abuse with Carlene Jenkins DENTAL TECHNICIAN APPRENTICE 08/27/2021 [F11.10 - Opioid abuse, unco mplicated] opioid abuse Medical Substance Abuse with Ana Laura Boroff [employer] 08/27/2021 [F43.10 - Post-traumatic str ess disorder, unspecified] post-traumatic stress disorder Medical Substance Abuse with Ana Laura Boroff [employer] 08/27/2021 [J45.30 - Mild persistent as thma, uncomplicated] asthma Medical Substance Abuse with Ana Laura Boroff [facility] 08/27/2021 [Z00.00 - Encounter for [facility] adult medical examination without abnormal findings] routine adult history and physical (18-64 yrs) without abnormal findings Medical Substance Abuse with Ana Laura Boroff [facility] 08/27/2021 [Z68.23 - Body mass index [B [place]] 23.0-23.9, adult] assessment of body mass index Medical Substance Abuse with Ana Laura Boroff [employer] 08/27/2021 Diabetes Risk Test Score was two score 08/27/2021 Medical Substance Abuse with Ana Laura Boroff [facility] 08/27/2021 [facility] Work Phone: 1(272) 484-246010-25-2021 History general Narrative - Reported Includes: Medical History in patient's chart Description Last Updated Recent immunization for flu 09/08/2021 History of hepatitis 08/27/2021 History of asthma 08/27/2021 History of drug dependence 08/27/2021 Skin infection 08/27/2021 History of psychiatric disorders [facility] Work Phone: 1(645) 845-669210-18-2021 Evaluation note Includes: Assessments for all patient encounters Findings Encounter Date Opioid dependence BH Substance Abuse w [facility] Carlene Jenkins DENTAL TECHNICIAN APPRENTICE 09/01/2021 Post-traumatic stress disorder BH Substa nce Abuse with Carlenecandelario Jenkins DENTAL TECHNICIAN APPRENTICE 09/01/2021 Assessment of body mass index Medical [place] bstance Abuse with Ana Laura Boroff [employer] 09/01/2021 Depression BH Substance Abuse w [facility] Carlene Jenkins DENTAL TECHNICIAN APPRENTICE 08/27/2021 Nicotine dependence BH Substance Abuse w [facility] Carlene Jenkins DENTAL TECHNICIAN APPRENTICE 08/27/2021 Opioid dependence BH Substance Abuse w [facility] Carlene Jenkins DENTAL TECHNICIAN APPRENTICE 08/27/2021 Post-traumatic stress disorder BH Substa nce Abuse with Carlene Jenkins DENTAL TECHNICIAN APPRENTICE 08/27/2021 [F11.10 - Opioid abuse, unco mplicated] opioid abuse Medical Substance Abuse with Ana Laura Boroff [employer] 08/27/2021 [F43.10 - Post-traumatic str ess disorder, unspecified] post-traumatic stress disorder Medical Substance Abuse with Ana Laura Boroff [employer] 08/27/2021 [J45.30 - Mild persistent as thma, uncomplicated] asthma Medical Substance Abuse with Ana Laura Boroff [employer] 08/27/2021 [Z00.00 - Encounter for [facility] adult medical examination without abnormal findings] routine adult history and physical (18-64 yrs) without abnormal findings Medical Substance Abuse with Ana Laura Boroff [employer] 08/27/2021 [Z68.23 - Body mass index [B [place]] 23.0-23.9, adult] assessment of body mass index Medical Substance Abuse with Ana Laura Boroff [employer] 08/27/2021 Diabetes Risk Test Score was two score 08/27/2021 Medical Substance Abuse with Ana Laura Boroff [employer] 08/27/2021 [facility] Work Phone: 1([phone]) 530-856110-13-2021 Evaluation note Includes: Assessments for all patient encounters Findings Encounter Date Depression BH Substance Abuse w [facility] Carlene Jenkins DENTAL TECHNICIAN APPRENTICE 08/27/2021 Nicotine dependence BH Substance Abuse w [facility] Carlene Jenkins DENTAL TECHNICIAN APPRENTICE 08/27/2021 Opioid dependence BH Substance Abuse w [facility] Carlene Jenkins DENTAL TECHNICIAN APPRENTICE 08/27/2021 Post-traumatic stress disorder BH Substa nce Abuse with Carlene Jenkins DENTAL TECHNICIAN APPRENTICE 08/27/2021 [F11.10 - Opioid abuse, unco mplicated] opioid abuse Medical Substance Abuse with Ana Lauralatonia Thao [employer] LOGGING ENGINEER 08/27/2021 [F43.10 - Post-traumatic str ess disorder, unspecified] post-traumatic stress disorder Medical Substance Abuse with Ana Laura Ethanoff [facility] 08/27/2021 [J45.30 - Mild persistent as thma, uncomplicated] asthma Medical Substance Abuse with Ana Laura Boroff [facility] 08/27/2021 [Z00.00 - Encounter for [facility] adult medical examination without abnormal findings] routine adult history and physical (18-64 yrs) without abnormal findings [facility] [Z68.23 - Body mass index [B [place]] 23.0-23.9, adult] assessment of body mass index [facility] Diabetes Risk Test Score was two score 08/27/2021 [facility] Work Phone: 1(171) 111-971910-13-2021 History general Narrative - Reported Includes: Medical History in patient's chart Description Last Updated History of hepatitis 08/27/2021 History of asthma 08/27/2021 History of drug dependence 08/27/2021 Skin infection 08/27/2021 History of psychiatric disorders [facility] Work Phone: 1(154) 940-174407-16-2021 History of Past illness Narrative* Problem Noted Date Resolved Date Osteomyelitis 05/30/2021 04/09/2022 documented as of this encounter (statuses as of 04/09/2022) [facility] History of Past illness Narrative* Problem Noted Date Resolved Date Osteomyelitis 05/30/2021 04/09/2022 documented as of this encounter (statuses as of 07/10/2022) [facility] History of Past illness Narrative* Problem Noted Date Resolved Date Osteomyelitis 05/30/2021 04/09/2022 documented as of this encounter (statuses as of 07/13/2022) [facility] History of Past illness Narrative* Problem Noted Date Resolved Date Osteomyelitis 05/30/2021 04/09/2022 documented as of this encounter (statuses as of 09/11/2022) [facility] History of Past illness Narrative* Problem Noted Date Diagnosed Date Resolved Date Osteomyelitis 05/30/2021 04/09/2022 documented as of this encounter (statuses as of 09/30/2023) [facility] History of Past illness Narrative* Problem Noted Date Diagnosed Date Resolved Date Osteomyelitis 05/30/2021 04/09/2022 documented as of this encounter (statuses as of 10/22/2023) [facility] History of Past illness Narrative* Problem Noted Date Diagnosed Date Resolved Date Osteomyelitis 05/30/2021 04/09/2022 documented as of this encounter (statuses as of 12/29/2023) [facility] Diagnosis Chest pain, unspecified type- Primary History of chest wound Personal history of other injury documented in this encounter [facility] [facility] Phone: evaluation note* Diagnosis Rib pain on left side- Primary Chest pain, unspecified Uncomplicated asthma, unspecified asthma severity, unspecified whether persistent Depressive disorder Depressive disorder, not elsewhere classified Mixed anxiety depressive disorder Dysthymic disorder Need for vaccination Need for prophylactic vaccination and inoculation against unspecified single disease [facility] Diagnosis Uncomplicated asthma, unspecified asthma severity, unspecified whether persistent- Primary [facility] Diagnosis Mild intermittent asthma without complication- Primary Unspecified asthma [facility] Diagnosis Pain in right finger(s)- Primary Moderate persistent asthma without complication Unspecified asthma Mixed anxiety depressive disorder Dysthymic disorder Injury of finger of right hand, initial encounter History of hepatitis C Personal history of other infectious and parasitic disease Heroin addiction (HCC) Opioid type dependence, unspecified Schizophrenia, unspecified type (HCC) Encounter for immunization Need for other specified prophylactic vaccination against single bacterial disease documented in this encounter [facility]* Diagnosis Laceration of right eyebrow, initial encounter- Primary Injury of head, initial encounter [facility] Diagnosis Mixed anxiety depressive disorder- Primary Dysthymic disorder Depressive disorder Depressive disorder, not elsewhere classified Moderate persistent asthma without complication Unspecified asthma Screening for colon cancer Special screening for malignant neoplasms, colon Homelessness Lack of housing [facility] N[facility] History of Present Illness not supported for this document type No History of Present Illness [facility] Work Phone: Hospital Discharge instructions* Attachments The following attachments cannot be sent through Care Everywhere. * [facility] Instructions Instructions not supported for this document type No Instructions [facility] Work Phone: Patient problem outcome Narrative Includes: Evaluations & Outcomes for active Goals No Outcomes [facility] Work Phone: Reason for referral (narrative)No Reason for Referral [facility] Work Phone: Reason for referral (narrative)* Outpatient Procedure (Routine) - Authorized Specialty Diagnoses / Procedures Referred By Contac t Referred To [facility]PIRAT[facility] Diagnoses Mild intermittent asthma without complication Procedures SPIROMETRY - BASELINE AND POST DILATOR BRNCDILAT RSPSE SPMTRY PRE&POST-BRNCDILAT ADMN Jenny Vieira MD [address] [place] [address] [address] Referral ID Status Reason Start Date Expiration Date Visits Requested Visits Authorized [id number] Authorized Auto-Generat ed Referral 07/13/2022 08/12/2023 1 1 * Outpatient Procedure (Routine) - Authorized Specialty Diagnoses / Procedures Referred By Contac t Referred To [facility] [place] Diagnoses Mild intermittent asthma without complication Procedures NITRIC OXIDE, EXHALED NITRIC OXIDE GAS DETERMINATION Jenny Vieira MD [address] [place] [address] Respiratory [place] [id number] Referral ID Status Reason Start Date Expiration Date Visits Requested Visits Authorized [id number] Authorized Auto-Generat ed Referral 07/13/2022 08/12/2023 1 1 [facility] for referral (narrative)* Diagnostic Procedure Only (Urgent) - Pending Review Specialty Diagnoses / Procedures Referred By Contac t Referred To Contact XR IMAGING Diagnoses Injury of finger of right hand, initial encounter Pain in right finger(s) Procedures XR DIGIT GENERAL 3V FRONTAL/LAT/OBL RIGHT RADEX FINGR MINIMUM 2 VIEWS Destinee Cobos APRN.CNP [address] [place] [address] [place] [address] Referral ID Status Reason Start Date Expiration Date Visits Requested Visits Authorized [id number] Pending Review Auto-Generat ed Referral 3 10/28/2024 1 1 * Medication Prior Authorization - Pending Review Specialty Diagnoses / Procedures Referred By Contac t Referred To Contact Diagnoses Moderate persistent asthma without complication Destinee Cobos APRN.[employer] SE[employer]ER [address] [place] [address] Referral ID Status Reason Start Date Expiration Date V isits Requested Visits Authorized [id number] Pending Review 1 1 [facility] systems Narrative - Reported Review of Systems not supported for this document type No Review of Systems [facility] Work Phone: Summary Purpose Family History No Family History Records Found Description Last Updated Paternal side- cancer 08/27/2021 Paternal history of family history of is chemic heart disease 08/27/2021 Advance Directives No Advanced Directives Records FoundNo Advanced Directives Records Found Includes: Current Advance Directives No Advance Directives Recorded Includes: Current Advance Directives No Advance Directives RecordedNo Advanced Directives Records Found Includes: Current Advance Directives No Advance Directives Recorded Includes: Current Advance Directives No Advance Directives Recorded Includes: Current Advance Directives No Advance Directives Recorded Includes: Current Advance Directives No Advance Directives Recorded Includes: Current Advance Directives No Advance Directives Recorded Includes: Current Advance Directives No Advance Directives Recorded Includes: Current Advance Directives No Advance Directives RecordedNo Advanced Directives Records FoundNo Advanced Directives Records FoundNo Advanced Directives Records FoundNo Advanced Directives Records FoundNo Advanced Directives Records FoundNo Advanced Directiv es Records Found Assessments Diagnosis Severe opioid use disorder (HCC) Physical Exam Physical Exam not supported for this document type No Physical Exam Recorded Physical Exam not supported for this document type No Physical Exam Recorded Physical Exam not supported for this document type No Physical Exam Recorded Physical Exam not supported for this document type No Physical Exam Recorded Physical Exam not supported for this document type No Physical Exam Recorded Physical Exam not supported for this document type No Physical Exam Recorded Physical Exam not supported for this document type No Physical Exam Recorded Physical Exam not supported for this document type No Physical Exam Recorded Physical Exam not supported for this document type No Physical Exam Recorded Medications Administered Section Inactive Administered Medications - up to 3 most recent administrations Medication Order MAR Action Action Date Dose Rate Site acetaminophen 500 mg tab(s) (TYLENOL) 500 mg, ORAL, ONCE, 1 dose, On [place] 10/21/23 at 1700, If ordered PRN for pain, patient/guardian may elect to receive this medication for higher pain levels INSTEAD of the opioid, if preferred: Yes Given 10/21/2023 6:20 PM EST 500 mg Additional Source Comments (unrecognized sect ion and content) No Status Records FoundNo Status Records FoundNo Status Records FoundNo Status Records FoundNo Status Records FoundNo Status Records FoundNo Status Records FoundNo Status Records FoundNo Status Records Found INFORMATION SOURCE (unrecogn ized section and content) DATE CREATED AUTHOR AUTHOR'S ORGANIZ ATION 12/07/2020 [facility] ([place]) DATE CREATED AUTHOR AUTHOR'S ORGANIZ ATION 09/03/2021 [facility] DATE CREATED AUTHOR AUTHOR'S ORGANIZ ATION 12/30/2021 [facility] DATE CREATED AUTHOR AUTHOR'S ORGANIZ ATION 02/24/2022 [facility] DATE CREATED AUTHOR AUTHOR'S ORGANIZ ATION 06/06/2022 [facility] DATE CREATED AUTHOR AUTHOR'S ORGANIZ ATION 03/26/2023 [facility] DATE CREATED AUTHOR AUTHOR'S ORGANIZ ATION 07/16/2023 [place] DATE CREATED AUTHOR AUTHOR'S ORGANIZ ATION 12/30/2023 [facility] Reason for Visit (unrecogniz ed section and content) Reason Comments F/U 3 Month Reason Comments Patient Question Reason Comments Appointment Reason Comments Physical Right middle finger pain - cut one week ago Reason Comments cut on eyebrow Hit with a shovel 1/ 2 hour ago Reason Comments Follow Up Scheduled Active and Recently Administ ered Medications (unrecognized section and content) Source Comments (unrecognize d section and content) In the event this informatio n is protected by the Federal Confidentiality of Alcohol and Drug Abuse Patient Records regulations: The Federal rules restrict any use of the information to criminally investigate or prosecute any alcohol or drug abuse patient.[facility] the event this information is protected by the Federal Confidentiality of Alcohol and Drug Abuse Patient Records regulations: The Federal rules restrict any use of the information to criminally investigate or prosecute any alcohol or drug abuse patient.[facility] the event this information is protected by the Federal Confidentiality of Alcohol and Drug Abuse Patient Records regulations: The Federal rules restrict any use of the information to criminally investigate or prosecute any alcohol or drug abuse patient.[facility] the event this information is protected by the Federal Confidentiality of Alcohol and Drug Abuse Patient Records regulations: The Federal rules restrict any use of the information to criminally investigate or prosecute any alcohol or drug abuse patient.[facility] Hospital[facility] the event this information is protected by the Federal Confidentiality of Alcohol and Drug Abuse Patient Records regulations: The Federal rules restrict any use of the information to criminally investigate or prosecute any alcohol or drug abuse patient.[facility] Hospital[facility] the event this information is protected by the Federal Confidentiality of Alcohol and Drug Abuse Patient Records regulations: The Federal rules restrict any use of the information to criminally investigate or prosecute any alcohol or drug abuse patient.[facility] Hospital[facility] the event this information is protected by the Federal Confidentiality of Alcohol and Drug Abuse Patient Records regulations: The Federal rules restrict any use of the information to criminally investigate or prosecute any alcohol or drug abuse patient.[facility] Care Teams (unrecognized sec tion and content) Consulting Property Manager Relationship Specialty Start Date End Date Josiah Pratt MD [address] [place] [address] PCP - General Internal Medicine 11/28/21 Consulting Property Manager Relationship Specialty Start Date End Date Josiah Pratt MD [address] [place] [address] PCP - General Internal Medicine 11/28/21 Consulting Property Manager Relationship Specialty Start Date End Date Josiah Pratt MD [address] [place] [address] PCP - General Internal Medicine 11/28/21 Consulting Property Manager Relationship Specialty Start Date End Date Josiah Pratt MD [address] [place] [address] PCP - General Internal Medicine 11/28/21 Consulting Property Manager Relationship Specialty Start Date End Date Josiah Pratt MD [address] [place] [address] PCP - General Internal Medicine 11/28/21 Consulting Property Manager Relationship Specialty Start Date End Date Josiah Pratt MD [address] [place] [address] PCP - General Internal Medicine 11/28/21 FOR RECORDS PERTAINING TO PATIENTS WHO ARE OR HAVE BEEN ENROLLED IN A CHEMICAL DEPENDENCY/SUBSTANCEABUSE PROGRAM, SOME INFORMATION MAY BE OMITTED. This clinical summary was aggregated from multiple sources. Caution should be exercised in using it in the provision of clinical care. This summary normalizes information from multiple sources, and as a consequence, information in this document may materially change the coding, format and clinical context of patient data. In addition, data may be omitted in some cases. CLINICAL DECISIONS SHOULD BE BASED ON THE PRIMARY CLINICAL RECORDS. [facility] [employer] [facility]. provides no warranty or guarantee of the accuracy or completeness of information in this document.
[2024-01-09 13:50] LABS: Amphetamine Urine VISTA POSITIVE (<1000 ng/mL); Barbiturate Urine VISTA NEGATIVE (< 200 ng/mL); Benzodiazepine Urine VISTA NEGATIVE (< 200 ng/mL); Cocaine Urine VISTA NEGATIVE (< 300 ng/mL); Ecstacy Urine VISTA NEGATIVE (< 500 ng/mL); Methadone Urine VISTA NEGATIVE (< 300 ng/mL); PCP Urine VISTA NEGATIVE (< 25 ng/mL); THC Urine VISTA NEGATIVE (< 50 ng/mL); Vista UDS pH Range 7
[2024-01-09 13:59] LABS: Absolute Lymphocyte Count 2.39 X10^3/uL (0.83-4.51); Absolute Neutrophil Count 4.4 X10^3/uL (2.0-7.7); Basophil# 0.04 X10^3/uL; Basophil% 0.5 % (0-1); Eosinophils% 5.3 % (0-5); Hematocrit 40.8 % (40-54); Lymphocyte # 2.39 X10^3/ul (0.83-4.51); Lymphocyte % 31.5 % (19-41); Mean Corp Hgb Conc 34.3 g/dL (32-36); Mean Corpuscular Hgb 32.5 pg (27.0-32.0); Mean Corpuscular Volume 94.7 fL (80-94); Mean Platelet Vol. 8.7 fl (6.2-12.0); Monocyte# 0.39 X10^3/uL; Monocyte% 5.1 % (0-10); NRBC Flagged by Analyzer 0 % (0-5); Neutrophil # 4.36 X10^3/uL (2.7-7.7); Neutrophil % 57.5 % (47-70); Platelet Count 280 K/mm3 (150-450); RBC Distribution Width CV 11.8 % (11.6-14.6); RBC Distribution Width SD 40.8 fl (35.1-43.9); Red Blood Count 4.31 M/mm3 (4.6-6.2); White Blood Count 7.6 K/mm3 (4.4-11.0)
[2024-01-09 14:18] LABS: Anion Gap 2 (5-15); BUN 11 mg/dL (7-18); BUN/Creat Ratio 14.1 RATIO (10-20); Calcium,Total 9.1 mg/dL (8.5-10.1); Chloride 110 mmol/L (98-107); Creatinine, Serum 0.78 mg/dL (0.70-1.30); EST Glomerular Filtration Rate 114 mL/min (>60); Est Glom Filt Rate - Afr Amer 137 mL/min (>60); Estimated Creatinine Clearance 129.89 ml/min; Glucose 93 mg/dL (74-106); Potassium 3.7 mmol/L (3.5-5.1); Sodium Level 140 mmol/L (136-145)
[2024-01-09 14:24] LABS: Alcohol, Blood (Medical)-Serum < 3.0 mg/dL
[2024-01-09] MEDS: LORazepam 1 MG Tablet PO ×2 (15:57→22:51)
[2024-01-09 16:19] VITALS: BP 145/78; PULSE 66; RESP 16; O2SAT 98
--- NOTE | 2024-01-09 16:31 | ED.RN ---
park ranger called crisis to check on status of when they will be here. crisis called back i said our therapist is out with another pt, she will be in later .
[2024-01-09 19:09] VITALS: RESP 16
[2024-01-09 19:42] VITALS: BP 142/92; PULSE 90; RESP 18; TEMP 36.9; O2SAT 98
[2024-01-09] MEDS: Acetaminophen 325 MG Tablet 650 MG PO (19:53)
--- NOTE | 2024-01-09 21:48 | ED.RN ---
PT ACCEPTED AT [place] [facility] [facility] BY . N2N [phone]. [facility] CALLED AT 2145 ETA 2HOURS
[2024-01-09 22:01] VITALS: BP 142/90; PULSE 88; RESP 16; TEMP 36.7; O2SAT 97
[2024-01-09 22:30] VITALS: BP 140/99; PULSE 88; RESP 16; O2SAT 99
== END 2024-01-09 23:07 ==
PROVIDERS: Emergency Provider Emergency Medicine; PCP Internal Medicine; Visit Provider Emergency Medicine
DX: S00.03XA Contusion of scalp, initial encounter (principal); F20.0 Paranoid schizophrenia; R45.851 Suicidal ideations; F15.90 Other stimulant use, unspecified, uncomplicated; F17.210 Nicotine dependence, cigarettes, uncomplicated; J45.909 Unspecified asthma, uncomplicated; F41.9 Anxiety disorder, unspecified; R51.9 Headache, unspecified; S60.511A Abrasion of right hand, initial encounter; S60.512A Abrasion of left hand, initial encounter; S60.811A Abrasion of right wrist, initial encounter; S60.812A Abrasion of left wrist, initial encounter; W17.89XA Other fall from one level to another, initial encounter; F11.90 Opioid use, unspecified, uncomplicated
CPT/HCPCS: 36415; 70450; 71045; 72125; 72170; 73552; 80048; 80307; 80320; 85025; 99284; G0480